=== PATIENT | female | born 1940 | race Caucasian/White ===

== ENCOUNTER 2016-11-29 12:12 | Emergency (ER) | payer MEDICARE, MEDICAID ==
--- NOTE | 2016-11-29 13:04 | EDM.PDOC ---
ED HPI GENERAL MEDICAL PROBLEM - General Chief Complaint: General Stated Complaint: MEDICAL VIA TRI Time Seen by Provider: 11/29/16 12:58 Source of Information: Reports: Patient, EMS, EMS Notes Reviewed, Family, Old Records (clinic notes reviewed from 11/24/16) - History of Present Illness INITIAL COMMENTS - FREE TEXT/NARRATIVE: Pt brought to ER via EMS. She reports going to bed last night around midnight. States that she uses a walker and misjudged the distance from her to the bed, resulting in a fall to the ground. She yelled but her family did not hear her. She lives with her son and and 3 kids. She states that she could hear the TV on very loud in the front room all night. She was able to pull the blanket off the bed and cover herself up while laying on the floor. Does not feel that she hurt anything but was unable to get up off the floor. She notes that her son saw her through the window when leaving the house this morning. They called the ambulance at that time. She currently denies pain. Is being treated for UTI since last week. States that she moved here from [place] but her son and his "are not caregivers but are doing ok" since she moved in with them. She also tells the nurse that she is diabetic but has not taken meds for 2 years. Onset: Today Duration: Improving Improves with: Reports: None Worsens with: Reports: None Context: Reports: Other (fall) Associated Symptoms: Reports: No Other Symptoms Lower Back Pain Score (Numeric/FACES): 5 - Related Data Allergies Allergy/AdvReac Type Severity Reaction Status Date / Time codeine Allergy Hives Verified 11/29/16 12:43 Home Meds: Home Meds Citalopram [Celexa] 10 mg PO DAILY 11/29/16 [History] Sulfamethoxazole/Trimethoprim [Sulfamethoxazole-Tmp Ds Tablet] 1 each PO BID [History] ED ROS GENERAL - Review of Systems Review Of Systems: See Below Constitutional: Reports: No Symptoms HEENT: Reports: No Symptoms Respiratory: Reports: No Symptoms Cardiovascular: Reports: No Symptoms GI/Abdominal: Reports: No Symptoms : Reports: Frequency, Incontinence Musculoskeletal: Reports: No Symptoms Skin: Reports: No Symptoms ED EXAM, GENERAL - Physical Exam Exam: See Below Exam Limited By: No Limitations General Appearance: Alert, WD/WN, No Apparent Distress, Other (unkempt with obvious lack of bathing recently) Ears: Normal External Exam, Normal Canal, Hearing Grossly Normal, Normal TMs Nose: Normal Inspection, Normal Mucosa, No Blood Throat/Mouth: Normal Inspection, Normal Lips, Normal Teeth, Normal Gums, Normal Oropharynx, Normal Voice, No Airway Compromise Head: Atraumatic, Normocephalic Neck: Normal Inspection, Supple, Non-Tender, Full Range of Motion Respiratory/Chest: No Respiratory Distress, Lungs Clear, Normal Breath Sounds, No Accessory Muscle Use, Chest Non-Tender Cardiovascular: Normal Peripheral Pulses, Regular Rate, Rhythm, No Edema, No Gallop, No JVD, No Murmur, No Rub Extremities: Normal Inspection, Normal Range of Motion, Non-Tender, Normal Capillary Refill, No Pedal Edema Neurological: Alert, Oriented, CN II-XII Intact, Normal Cognition, Normal Gait, Normal Reflexes, No Motor/Sensory Deficits Psychiatric: Normal Affect, Normal Mood Skin Exam: Warm, Dry, Intact, Normal Color, No Rash Course - Vital Signs Last Recorded V/S: Last Vital Signs Temp 96.8 F 11/29/16 14:42 Pulse 84 11/29/16 14:42 Resp 16 11/29/16 14:42 BP 186/108 H 11/29/16 14:42 Pulse Ox 97 11/29/16 14:42 - Orders/Labs/Meds Orders: Active Orders 24 hr Category Date Time Status Consult to Home Health [CONS] Routine Cons 11/29/16 14:20 Active CULTURE URINE [RM] Stat Lab 11/29/16 14:46 Uncollected GLYCOSYLATED HEMOGLOBIN,HGBA1C [CHEM] Stat Lab 11/29/16 13:06 Ordered Sodium Chloride 0.9% [Normal Saline] 1,000 ml Med 11/29/16 14:47 Active IV .BOLUS CM Social Work Follow Up [CM] Routine Oth 11/29/16 14:20 Ordered Medication Orders Sodium Chloride (Normal Saline) 1,000 mls @ 999 mls/hr IV .BOLUS ONE Stop: 11/29/16 15:47 Last Admin: 11/29/16 15:34 Dose: 999 mls/hr Labs: Laboratory Tests 11/29/16 11/29/16 11/29/16 Range/Units 13:03 13:03 14:36 WBC 7.3 (4.5-11.0) K/uL RBC 3.65 (3.30-5.50) M/uL Hgb 10.6 L (12.0-15.0) g/dL Hct 31.2 L (36.0-48.0) % MCV 86 (80-98) fL MCH 29 (27-31) pg MCHC 34 (32-36) % Plt Count 209 (150-400) K/uL Neut % (Auto) 64 (36-66) % Lymph % (Auto) 21 L (24-44) % [place] % (Auto) 8 H (2-6) % Eos % (Auto) 7 H (2-4) % Baso % (Auto) 0 (0-1) % Sodium 137 L (140-148) mmol/L Potassium 3.9 (3.6-5.2) mmol/L Chloride 103 (100-108) mmol/L Carbon Dioxide 25 (21-32) mmol/L Anion Gap 12.9 (5.0-14.0) mmol/L BUN 21 H (7-18) mg/dL Creatinine 1.6 H (0.6-1.0) mg/dL Est Cr Clr Drug Dosing 31.26 mL/min Estimated GFR (MDRD) 31 L (>60) Glucose 326 H (74-106) mg/dL Calcium 9.0 (8.5-10.1) mg/dL Total Bilirubin 0.4 (0.2-1.0) mg/dL AST 12 L (15-37) U/L ALT 18 (12-78) U/L Alkaline Phosphatase 62 (46-116) U/L Total Protein 7.0 (6.4-8.2) g/dL Albumin 3.0 L (3.4-5.0) g/dL Globulin 4.0 H (2.3-3.5) g/dL Albumin/Globulin Ratio 0.8 L (1.2-2.2) Urine Color Yellow Urine Appearance Cloudy Urine pH 8.0 (4.5-8.0) Ur Specific [place] 1.015 (1.008-1.030) Urine Protein 100 H (NEGATIVE) mg/dL Urine Glucose (UA) 1000 H (NEGATIVE) mg/dL Urine Ketones Negative (NEGATIVE) mg/dL Urine Occult Blood Moderate (NEGATIVE) Urine Nitrite Negative (NEGATIVE) Urine Bilirubin Negative (NEGATIVE) Urine Urobilinogen Normal (NORMAL) mg/dL Ur Leukocyte Esterase Large (NEGATIVE) Urine RBC 5-10 H (0-5) Urine WBC Semi-packed H (0-5) Ur Epithelial Cells Few Amorphous Sediment Not seen Urine Bacteria Many Urine Mucus Not seen Meds: Medications Generic Name Dose Route Start Last Admin Trade Name Freq PRN Reason Stop Dose Admin Sodium Chloride 1,000 mls @ 999 mls/hr 11/29/16 14:47 11/29/16 15:34 Normal Saline IV 11/29/16 15:47 999 mls/hr .BOLUS ONE Administration Discontinued Medications Generic Name Dose Route Start Last Admin Trade Name Freq PRN Reason Stop Dose Admin Ceftriaxone Sodium 1 gm/ 50 mls @ 100 mls/hr 11/29/16 14:46 11/29/16 15:04 Sodium Chloride IV 11/29/16 15:15 100 mls/hr ONETIME ONE Administration Departure - Departure Time of Disposition: 14:14 Disposition: Home, W Home Health Agency 06 Condition: Good Clinical Impression: Type 2 diabetes mellitus, Hypertension - Discharge Information Instructions: Hypertension Referrals: Nain Edmonds MD [Primary Care Provider] - Forms: ED Department Discharge Additional Instructions: Pt needing more care at home. Reports that she has not had a bath in "a very long time". Discussed using home health services for showering. Son states that she is getting physical therapy twice a week at this time and is improving. Discussed the need to get a diabetic testing monitor and strips as pt does not have one at home. She will need to resume insulin but is unsure what she used to take. I instructed the son to call the pharmacy in [place] for a med list and dosing. He should then report it to the primary care office. Pt has had an evaluation for assisted living placement. They have not heard back from them. Son is to call tomorrow to check on the status of placement. Pt will be discharged to home with the understanding that she needs placement for better hygiene cares, medication and diabetic management. New meds Lisinopril 10mg po daily. Reviewed fall risk. Consider [facility] services to improve safety in the home. Pt to followup with primary care in 1 week. - Problem List & Annotations (1) Type 2 diabetes mellitus SNOMED Code(s): 82757290 Code(s): E11.9 - TYPE 2 DIABETES MELLITUS WITHOUT COMPLICATIONS Status: Acute Priority: Low Current Visit: Yes (2) Hypertension SNOMED Code(s): 16245094 Code(s): I10 - ESSENTIAL (PRIMARY) HYPERTENSION Status: Acute Priority: Low Current Visit: Yes - My Orders Last 24 Hours: My Active Orders 11/29/16 13:06 GLYCOSYLATED HEMOGLOBIN,HGBA1C [CHEM] Stat 11/29/16 14:20 Consult to Home Health [CONS] Routine CM Social Work Follow Up [CM] Routine 11/29/16 14:46 CULTURE URINE [RM] Stat 11/29/16 14:47 Sodium Chloride 0.9% [Normal Saline] 1,000 ml IV .BOLUS - Assessment/Plan Last 24 Hours: My Active Orders 11/29/16 13:06 GLYCOSYLATED HEMOGLOBIN,HGBA1C [CHEM] Stat 11/29/16 14:20 Consult to Home Health [CONS] Routine CM Social Work Follow Up [CM] Routine 11/29/16 14:46 CULTURE URINE [RM] Stat 11/29/16 14:47 Sodium Chloride 0.9% [Normal Saline] 1,000 ml IV .BOLUS
[2016-11-29 14:37] VITALS: BP 186/108
[2016-11-29] MEDS ORDERED: cefTRIAXone 1 GM in Sodium Chloride 0.9% 50 ML IV ONE (14:46)
[2016-11-29] MEDS ORDERED: Sodium Chloride 0.9% 1,000 ML IV ONE (14:47)
== END 2016-11-29 16:10 | disposition home health service (06) ==
LOC: JP.ED 12:12
DX: E11.9 Type 2 diabetes mellitus without complications (principal); I10 Essential (primary) hypertension; Z88.5 Allergy status to narcotic agent; Z79.899 Other long term (current) drug therapy
CPT/HCPCS: 36415; 80053; 81001; 83036; 85025; 96361; 96365; 99284; J0696; J7040; J7050

== ENCOUNTER 2017-07-16 12:10 | Emergency (ER) | payer MEDICARE, MEDICAID ==
--- NOTE | 2017-07-16 13:36 | EDM.PDOC ---
ED HPI GENERAL MEDICAL PROBLEM - General Chief Complaint: Head Injury Stated Complaint: FALL, HIT HEAD Time Seen by Provider: 07/16/17 13:27 Source of Information: Reports: Patient, Family, RN Notes Reviewed History Limitations: Reports: No Limitations - History of Present Illness INITIAL COMMENTS - FREE TEXT/NARRATIVE: 77-year-old female presents to the emergency department today following a fall at the assisted living center. She had fallen out of her wheelchair head injury to the back of her head left side patient does not recall any of this event she had a large amount emesis following the event. At this time she has no complaints except pain at the site of injury. Left Head Pain Score (Numeric/FACES): 2 - Related Data Allergies Allergy/AdvReac Type Severity Reaction Status Date / Time codeine Allergy Hives Verified 07/16/17 13:02 Home Meds: Home Meds Sulfamethoxazole/Trimethoprim [Sulfamethoxazole-Tmp Ds Tablet] 1 each PO BID [History] Calcium Polycarbophil [Fibercon] 1 tab PO DAILY 07/16/17 [History] Escitalopram [Lexapro] 1 tab PO DAILY 07/16/17 [History] Gabapentin [Neurontin] 1 tab PO BID 07/16/17 [History] Insulin Glarg,Human.Rec.Analog [Lantus Solostar] 15 units SUBCUT BEDTIME [History] Lisinopril 1 tab PO DAILY 07/16/17 [History] Oxybutynin [Oxybutynin ER] 1 tab PO BEDTIME 07/16/17 [History] atorvaSTATin [Lipitor] 1 tab PO BEDTIME 07/16/17 [History] Past Medical History HEENT History: Reports: Impaired Vision Genitourinary History: Reports: UTI, Recurrent 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: , 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 Musculoskeletal History: Reports: Fracture Other Musculoskeletal History: l ankle Psychiatric History: Reports: Anxiety, Depression, Panic Attack Endocrine/Metabolic History: Reports: Diabetes, Type II Oncologic (Cancer) History: Reports: Other (See Below) Other Oncologic History: skin CA r arm - Infectious Disease History Infectious Disease History: Reports: Chicken Pox, Measles, Mumps - Past Surgical History HEENT Surgical History: Reports: Cataract Surgery GI Surgical History: Reports: Appendectomy, Cholecystectomy Female Surgical History: Reports: Hysterectomy Dermatological Surgical History: Reports: Skin Biopsy, Other (See Below) Social & Family History - Tobacco Use Smoking Status *Q: Never Smoker Second Hand Smoke Exposure: No - Caffeine Use Caffeine Use: Reports: Soda, Tea - Recreational Drug Use Recreational Drug Use: No ED ROS GENERAL - Review of Systems Review Of Systems: See Below Constitutional: Reports: No Symptoms HEENT: Reports: No Symptoms Respiratory: Reports: No Symptoms Cardiovascular: Reports: No Symptoms GI/Abdominal: Reports: No Symptoms : Reports: No Symptoms Musculoskeletal: Reports: No Symptoms Skin: Reports: Other Neurological: Reports: Headache ED EXAM, HEAD INJURY - Physical Exam Exam: See Below Exam Limited By: No Limitations General Appearance: Alert, No Apparent Distress Head: Normocephalic, Scalp Hematoma, Scalp Tenderness Nexus Criteria: No: Posterior, Midline Cervical Tenderness, Evidence of Intoxication, Altered Level of Consciousness, Focal Neurological Deficit, Painful Distraction Injuries Eyes: Bilateral Eye: EOMI, Normal Inspection, PERRL Ears: Normal External Exam, Normal Canal, Hearing Grossly Normal, Normal TMs Nose: Normal Inspection, Normal Mucousa, No Blood Throat/Mouth: Normal Inspection, Normal Lips, Normal Teeth, Normal Gums, Normal Oropharynx, Normal Voice, No Airway Compromise Neck: Non-Tender, Full Range of Motion, Normal Alignment, Normal Inspection Respiratory: No Respiratory Distress, Lungs Clear, Normal Breath Sounds, No Accessory Muscle Use, Chest Non-Tender Cardiovascular: Regular Rate, Rhythm, No Murmur GI/Abdominal Exam: Soft, Non-Tender Extremities: Normal Inspection, Normal Range of Motion, Non-Tender, No Pedal Edema, Normal Capillary Refill Neurologic: No Motor/Sensory Deficits, Alert, Normal Mood/Affect Course - Vital Signs Last Recorded V/S: Last Vital Signs Temp 98.1 F 07/16/17 12:57 Pulse 63 07/16/17 14:36 Resp 14 07/16/17 14:36 BP 168/78 H 07/16/17 14:36 Pulse Ox 94 L 07/16/17 14:36 - Orders/Labs/Meds Meds: Medications Discontinued Medications Generic Name Dose Route Start Last Admin Trade Name Freq PRN Reason Stop Dose Admin Nitroglycerin 0.4 mg 07/16/17 14:08 07/16/17 14:20 Nitrostat SL 07/16/17 14:09 0.4 mg ONETIME ONE Administration Departure - Departure Time of Disposition: 14:51 Disposition: Home, Self-Care 01 Condition: Good Clinical Impression: Head injury Qualifiers: Encounter type: initial encounter Qualified Code(s): S09.90XA - Unspecified injury of head, initial encounter Hypertension Qualifiers: Hypertension type: unspecified Qualified Code(s): I10 - Essential (primary) hypertension - Discharge Information Referrals: Nain Edmonds MD [Primary Care Provider] - Forms: ED Department Discharge Additional Instructions: Increase the lisinopril from 10 mg once a day to 20 mg once a day, please follow -up with your primary care for reevaluation in 3-5 days, call or return to the emergency department with worsening of symptoms - Assessment/Plan Plan: Assessment Acuity = acute Site and laterality = head injury with hypertensive urgency Etiology = secondary to fall on the head injury unclear etiology for blood pressure Manifestations = none Location of injury = Home Lab values = CT scan of the head shows no bleed or fracture scalp hematoma present Plan She had some improvement with nitroglycerin 1 provided 0.2 mg plan is to increase her lisinopril from 10 mg once a day to 20 mg once a day follow-up with primary care in 3-5 days for reevaluation This note was dictated using [email or web address] voice recognition software please call with any questions on syntax or foreign.
--- NOTE | 2017-07-16 14:03 | CT ---
Head wo Cont HISTORY: head injury with emesis TECHNIQUE: Spiral noncontrast CT scan of the brain was obtained along with high-resolution bone windo w reconstructions. Auto dosage and iterative reconstruction techniques were employed. FINDINGS: No acute intracranial hemorrhage or infarct is identified. There is no mass lesion, mass effect, midl ine shift, or ventricular abnormality. No abnormal extra-axial fluid collections are seen. Visualized paranasal sinuses and mastoid air cells are clear. Bone windows show no evidence for skull fracture. Left parietal scalp hematoma is noted. IMPRESSION: Left parietal scalp hematoma. No hemorrhage, infarct, or other acute intracranial abnormality is iden tified. Negative for skull fracture. Report was called to Officer in the Emergency Department at 1358 hours.
[2017-07-16] MEDS ORDERED: Nitroglycerin 0.4 MG Tab.SL SL ONE (14:08)
[2017-07-16 14:37] VITALS: BP 168/78
== END 2017-07-16 15:02 | disposition home or self-care (01) ==
LOC: JP.ED 12:10
DX: S00.03XA Contusion of scalp, initial encounter (principal); S09.90XA Unspecified injury of head, initial encounter; E11.9 Type 2 diabetes mellitus without complications; I10 Essential (primary) hypertension; Z88.5 Allergy status to narcotic agent; Z79.899 Other long term (current) drug therapy; W19.XXXA Unspecified fall, initial encounter
CPT/HCPCS: 70450; 99284; A9270

== ENCOUNTER 2017-09-27 00:44 | Emergency (ER) | payer MEDICARE, MEDICAID ==
--- NOTE | 2017-09-27 00:56 | EDM.PDOCBH ---
<Jose Hassan - Last Filed: 09/28/17 14:36> ED HPI GENERAL MEDICAL PROBLEM - General Chief Complaint: Behavioral/Psych Stated Complaint: MEDICAL VIA TRI Time Seen by Provider: 09/27/17 00:52 - Related Data Allergies Allergy/AdvReac Type Severity Reaction Status Date / Time codeine Allergy Hives Verified 07/16/17 13:02 Home Meds: Home Meds Insulin Glarg,Human.Rec.Analog [Lantus Solostar] 15 units SUBCUT BEDTIME [History] Hydrochlorothiazide 25 mg PO DAILY 09/27/17 [History] Lisinopril 20 mg PO DAILY 09/27/17 [History] Mirtazapine [Remeron] 15 mg PO BEDTIME 09/27/17 [History] atorvaSTATin Calcium [Atorvastatin Calcium] 20 mg PO DAILY 09/27/17 [History] COURSE, BEHAVIORAL HEALTH COMP - Course Vital Signs: Last Vital Signs Temp 37.3 C 09/27/17 20:19 Pulse 62 09/28/17 14:18 Resp 16 09/28/17 14:18 BP 181/79 H 09/28/17 14:18 Pulse Ox 100 09/28/17 14:18 Orders, Labs, Meds: Laboratory Tests 09/27/17 09/27/17 09/27/17 Range/Units 01:00 01:00 16:36 WBC 8.3 (4.5-11.0) K/uL RBC 3.44 (3.30-5.50) M/uL Hgb 10.1 L (12.0-15.0) g/dL Hct 30.5 L (36.0-48.0) % MCV 89 (80-98) fL MCH 29 (27-31) pg MCHC 33 (32-36) % Plt Count 186 (150-400) K/uL Sodium 137 L (140-148) mmol/L Potassium 3.8 (3.6-5.2) mmol/L Chloride 102 (100-108) mmol/L Carbon Dioxide 23 (21-32) mmol/L Anion Gap 15.8 H (5.0-14.0) mmol/L BUN 36 H D (7-18) mg/dL Creatinine 1.8 H (0.6-1.0) mg/dL Est Cr Clr Drug Dosing 26.40 mL/min Estimated GFR (MDRD) 27 L (>60) Glucose 245 H (74-106) mg/dL Calcium 8.7 (8.5-10.1) mg/dL TSH, Ultra Sensitive 4.214 H (0.358-3.740) uIU/mL Urine Color Yellow Urine Appearance Slightly cloudy Urine pH 6.0 (4.5-8.0) Ur Specific Berry 1.010 (1.008-1.030) Urine Protein 100 H (NEGATIVE) mg/dL Urine Glucose (UA) Normal (NEGATIVE) mg/dL Urine Ketones Negative (NEGATIVE) mg/dL Urine Occult Blood Moderate (NEGATIVE) Urine Nitrite Negative (NEGATIVE) Urine Bilirubin Negative (NEGATIVE) Urine Urobilinogen Normal (NORMAL) mg/dL Ur Leukocyte Esterase Negative (NEGATIVE) Urine RBC 0-5 (0-5) Urine WBC 0-5 (0-5) Ur Epithelial Cells Rare Amorphous Sediment Not seen Urine Bacteria Many Urine Mucus Not seen Urine Opiates Screen (NEGATIVE) Ur Oxycodone Screen (NEGATIVE) Urine Methadone Screen (NEGATIVE) Ur Propoxyphene Screen (NEGATIVE) Ur Barbiturates Screen (NEGATIVE) Ur Tricyclics Screen (NEGATIVE) Ur Phencyclidine Scrn (NEGATIVE) Ur Amphetamine Screen (NEGATIVE) U Methamphetamines Scrn (NEGATIVE) Urine MDMA Screen (NEGATIVE) U Benzodiazepines Scrn (NEGATIVE) U Cocaine Metab Screen (NEGATIVE) U Marijuana (THC) Screen (NEGATIVE) 09/27/17 Range/Units 16:38 WBC (4.5-11.0) K/uL RBC (3.30-5.50) M/uL Hgb (12.0-15.0) g/dL Hct (36.0-48.0) % MCV (80-98) fL MCH (27-31) pg MCHC (32-36) % Plt Count (150-400) K/uL Sodium (140-148) mmol/L Potassium (3.6-5.2) mmol/L Chloride (100-108) mmol/L Carbon Dioxide (21-32) mmol/L Anion Gap (5.0-14.0) mmol/L BUN (7-18) mg/dL Creatinine (0.6-1.0) mg/dL Est Cr Clr Drug Dosing mL/min Estimated GFR (MDRD) (>60) Glucose (74-106) mg/dL Calcium (8.5-10.1) mg/dL TSH, Ultra Sensitive (0.358-3.740) uIU/mL Urine Color Urine Appearance Urine pH (4.5-8.0) Ur Specific Berry (1.008-1.030) Urine Protein (NEGATIVE) mg/dL Urine Glucose (UA) (NEGATIVE) mg/dL Urine Ketones (NEGATIVE) mg/dL Urine Occult Blood (NEGATIVE) Urine Nitrite (NEGATIVE) Urine Bilirubin (NEGATIVE) Urine Urobilinogen (NORMAL) mg/dL Ur Leukocyte Esterase (NEGATIVE) Urine RBC (0-5) Urine WBC (0-5) Ur Epithelial Cells Amorphous Sediment Urine Bacteria Urine Mucus Urine Opiates Screen Negative (NEGATIVE) Ur Oxycodone Screen Negative (NEGATIVE) Urine Methadone Screen Negative (NEGATIVE) Ur Propoxyphene Screen Negative (NEGATIVE) Ur Barbiturates Screen Negative (NEGATIVE) Ur Tricyclics Screen Negative (NEGATIVE) Ur Phencyclidine Scrn Negative (NEGATIVE) Ur Amphetamine Screen Negative (NEGATIVE) U Methamphetamines Scrn Negative (NEGATIVE) Urine MDMA Screen Negative (NEGATIVE) U Benzodiazepines Scrn Negative (NEGATIVE) U Cocaine Metab Screen Negative (NEGATIVE) U Marijuana (THC) Screen Negative (NEGATIVE) Medications Discontinued Medications Generic Name Dose Route Start Last Admin Trade Name Freq PRN Reason Stop Dose Admin Hydrochlorothiazide 25 mg 09/27/17 14:10 09/27/17 14:33 Hydrochlorothiazide PO 09/27/17 14:11 25 mg ONETIME ONE Administration Hydrochlorothiazide 25 mg 09/28/17 12:22 09/28/17 12:30 Hydrochlorothiazide PO 09/28/17 12:23 25 mg ONETIME ONE Administration Lisinopril 20 mg 09/28/17 14:13 09/27/17 14:34 Prinivil PO 09/28/17 14:14 20 mg ONETIME ONE Administration Lisinopril 20 mg 09/28/17 12:22 09/28/17 12:30 Prinivil PO 09/28/17 12:23 20 mg ONETIME ONE Administration Lisinopril Confirm 09/28/17 12:32 Prinivil Administered 09/28/17 12:33 Dose 10 mg .ROUTE .STK-MED ONE Metformin HCl 500 mg 09/27/17 01:49 09/27/17 02:12 Glucophage PO 09/27/17 01:50 Not Given ONETIME ONE Metoprolol Succinate 50 mg 09/27/17 17:42 09/27/17 18:24 Toprol Xl PO 09/27/17 17:43 50 mg ONETIME ONE Administration Re-Assessment/Re-Exam: Patient accepted from Dr. Prieto awaiting placement for suicidal ideation. At this time the patient continues to be quiet, resting, but not compliant or communicating with nurses. She is showing no outward aggressive or suicidal behavior acutely, does not need to be on suicide precautions or watch but still needs placement. After an extensive evaluation by crisis intervention, and a group meeting with the care staff from her assisted living, it was felt that she needed inpatient treatment for her psychiatric symptoms and was not stable enough to be sent back to assisted living. She remained hypertensive even after getting her normal antihypertensive medication so it an additional 50 mg of oral metoprolol was given. 09/28/17 12:24 Patient's mental status continues to improve, she is now communicating, eating, and is willing to cooperate. I teleconference evaluation from Dr. Michael was set up. She continued to be moderately hypertensive and was given her lisinopril and hydrochlorothiazide. If medication adjustments can be made by Dr. Michael, patient is willing to go back to assisted living. After thorough consultation by Dr. Michael, the patient will be discharged back to her assisted living. Remeron will be discontinued, and she will be started on 25 mg of Topamax twice a day with 6.25 mg of Seroquel in the evening. 10 days supply of prescriptions were given to the patient and she is to follow up with primary care or outpatient psychology /psychiatry within the next 10 days. Departure - Departure Disposition: Home, Self-Care 01 Clinical Impression: Elevated blood sugar, Mild dehydration, Suicidal ideation Depression Qualifiers: Depression Type: unspecified Qualified Code(s): F32.9 - Major depressive disorder, single episode, unspecified - Discharge Information Instructions: Persistent Depressive Disorder, Adult, [id number], Dehydration , Adult, [id number], Hyperglycemia, [id number] Referrals: PCP,None [Primary Care Provider] - Forms: ED Department Discharge Care Plan Goals: D/C Remeron and start Topamax and Seroquel as prescribed. Recheck with primary care or outpatient psychology/psychiatry within the next 10 days before medications run out. Return sooner if worsening despite change in treatment. 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 Will not reveal her plan. Does not have access to any meds in her apartment. No hx of suicidal attempts. Has not been compliant with her meds. Is not here willingly, had called and reported her thoughts of not wanting to live with a caregiver/friend and she had her on speaker phone with one of [facility]. Mellisa not knowing that there were others listening on the conversation said she would deny everything if anyone confronted her about this. Onset: Gradual Duration: Chronic, Getting Worse Location: Reports: Generalized Quality: Reports: Other (no pain) Severity: Moderate Improves with: Reports: None Worsens with: Reports: Other (time) Context: Reports: Other (has chronic depression. 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 (see below) (antidepressants tried, not taking consistently.) Past Medical History HEENT History: Reports: Impaired Vision Genitourinary History: Reports: UTI, Recurrent USED [employer] History: Reports: , Spontaneous Musculoskeletal History: Reports: Fracture Other Musculoskeletal History: l ankle Psychiatric History: Reports: Anxiety, Depression, Panic Attack Endocrine/Metabolic History: Reports: Diabetes, Type II Oncologic (Cancer) History: Reports: Other (See Below) Other Oncologic History: skin CA r arm - Infectious Disease History Infectious Disease History: Reports: Chicken Pox, Measles, Mumps - Past Surgical History HEENT Surgical History: Reports: Cataract Surgery GI Surgical History: Reports: Appendectomy, Cholecystectomy Female Surgical History: Reports: Hysterectomy Dermatological Surgical History: Reports: Skin Biopsy, Other (See Below) Social & Family History - Caffeine Use Caffeine Use: Reports: Soda, Tea ED ROS GENERAL - Review of Systems Review Of Systems: See Below Constitutional: Reports: No Symptoms HEENT: Reports: No Symptoms Respiratory: Reports: No Symptoms Cardiovascular: Reports: No Symptoms Endocrine: Reports: No Symptoms GI/Abdominal: Reports: No Symptoms : Reports: No Symptoms Musculoskeletal: Reports: No Symptoms Skin: Reports: No Symptoms Neurological: Reports: Other (insomnia) Psychiatric: Reports: Depression, Suicidal Ideation ED EXAM, BEHAVIORAL HEALTH - Physical Exam Exam: See Below Exam Limited By: No Limitations General Appearance: Alert, WD/WN, No Apparent Distress Eye Exam: Bilateral Eye: Normal Inspection Ears: Normal External Exam, Normal Canal, Hearing Grossly Normal Nose: Normal Inspection, Normal Mucosa, No Blood Throat/Mouth: Normal Inspection, Normal Lips, Normal Oropharynx, Normal Voice, No Airway Compromise, Other (edentulous) Head: Atraumatic, Normocephalic Neck: Normal Inspection Respiratory/Chest: No Respiratory Distress, Lungs Clear, Normal Breath Sounds, No Accessory Muscle Use Cardiovascular: Regular Rate, Rhythm, No Edema GI/Abdominal: Normal Bowel Sounds, Soft, Non-Tender, No Distention Back Exam: Normal Inspection. No: CVA Tenderness (R), CVA Tenderness (L) Extremities: Normal Inspection, Normal Range of Motion, Non-Tender, No Pedal Edema Neurological: Alert, CN II-XII Intact, Normal Cognition, Normal Reflexes, No Motor/Sensory Deficits, Oriented x 3 Psychiatric: Alert, Normal Cognition, Oriented, Flat Affect, Withdrawn Skin Exam: Warm, Dry, Intact, Normal color, No rash COURSE, BEHAVIORAL HEALTH COMP - Course Vital Signs: Last Vital Signs Temp 37.3 C 09/27/17 20:19 Pulse 62 09/28/17 14:18 Resp 16 09/28/17 14:18 BP 181/79 H 09/28/17 14:18 Pulse Ox 100 09/28/17 14:18 Orders, Labs, Meds: Laboratory Tests 09/27/17 09/27/17 09/27/17 Range/Units 01:00 01:00 16:36 WBC 8.3 (4.5-11.0) K/uL RBC 3.44 (3.30-5.50) M/uL Hgb 10.1 L (12.0-15.0) g/dL Hct 30.5 L (36.0-48.0) % MCV 89 (80-98) fL MCH 29 (27-31) pg MCHC 33 (32-36) % Plt Count 186 (150-400) K/uL Sodium 137 L (140-148) mmol/L Potassium 3.8 (3.6-5.2) mmol/L Chloride 102 (100-108) mmol/L Carbon Dioxide 23 (21-32) mmol/L Anion Gap 15.8 H (5.0-14.0) mmol/L BUN 36 H D (7-18) mg/dL Creatinine 1.8 H (0.6-1.0) mg/dL Est Cr Clr Drug Dosing 26.40 mL/min Estimated GFR (MDRD) 27 L (>60) Glucose 245 H (74-106) mg/dL Calcium 8.7 (8.5-10.1) mg/dL TSH, Ultra Sensitive 4.214 H (0.358-3.740) uIU/mL Urine Color Yellow Urine Appearance Slightly cloudy Urine pH 6.0 (4.5-8.0) Ur Specific Berry 1.010 (1.008-1.030) Urine Protein 100 H (NEGATIVE) mg/dL Urine Glucose (UA) Normal (NEGATIVE) mg/dL Urine Ketones Negative (NEGATIVE) mg/dL Urine Occult Blood Moderate (NEGATIVE) Urine Nitrite Negative (NEGATIVE) Urine Bilirubin Negative (NEGATIVE) Urine Urobilinogen Normal (NORMAL) mg/dL Ur Leukocyte Esterase Negative (NEGATIVE) Urine RBC 0-5 (0-5) Urine WBC 0-5 (0-5) Ur Epithelial Cells Rare Amorphous Sediment Not seen Urine Bacteria Many Urine Mucus Not seen Urine Opiates Screen (NEGATIVE) Ur Oxycodone Screen (NEGATIVE) Urine Methadone Screen (NEGATIVE) Ur Propoxyphene Screen (NEGATIVE) Ur Barbiturates Screen (NEGATIVE) Ur Tricyclics Screen (NEGATIVE) Ur Phencyclidine Scrn (NEGATIVE) Ur Amphetamine Screen (NEGATIVE) U Methamphetamines Scrn (NEGATIVE) Urine MDMA Screen (NEGATIVE) U Benzodiazepines Scrn (NEGATIVE) U Cocaine Metab Screen (NEGATIVE) U Marijuana (THC) Screen (NEGATIVE) 09/27/17 Range/Units 16:38 WBC (4.5-11.0) K/uL RBC (3.30-5.50) M/uL Hgb (12.0-15.0) g/dL Hct (36.0-48.0) % MCV (80-98) fL MCH (27-31) pg MCHC (32-36) % Plt Count (150-400) K/uL Sodium (140-148) mmol/L Potassium (3.6-5.2) mmol/L Chloride (100-108) mmol/L Carbon Dioxide (21-32) mmol/L Anion Gap (5.0-14.0) mmol/L BUN (7-18) mg/dL Creatinine (0.6-1.0) mg/dL Est Cr Clr Drug Dosing mL/min Estimated GFR (MDRD) (>60) Glucose (74-106) mg/dL Calcium (8.5-10.1) mg/dL TSH, Ultra Sensitive (0.358-3.740) uIU/mL Urine Color Urine Appearance Urine pH (4.5-8.0) Ur Specific Berry (1.008-1.030) Urine Protein (NEGATIVE) mg/dL Urine Glucose (UA) (NEGATIVE) mg/dL Urine Ketones (NEGATIVE) mg/dL Urine Occult Blood (NEGATIVE) Urine Nitrite (NEGATIVE) Urine Bilirubin (NEGATIVE) Urine Urobilinogen (NORMAL) mg/dL Ur Leukocyte Esterase (NEGATIVE) Urine RBC (0-5) Urine WBC (0-5) Ur Epithelial Cells Amorphous Sediment Urine Bacteria Urine Mucus Urine Opiates Screen Negative (NEGATIVE) Ur Oxycodone Screen Negative (NEGATIVE) Urine Methadone Screen Negative (NEGATIVE) Ur Propoxyphene Screen Negative (NEGATIVE) Ur Barbiturates Screen Negative (NEGATIVE) Ur Tricyclics Screen Negative (NEGATIVE) Ur Phencyclidine Scrn Negative (NEGATIVE) Ur Amphetamine Screen Negative (NEGATIVE) U Methamphetamines Scrn Negative (NEGATIVE) Urine MDMA Screen Negative (NEGATIVE) U Benzodiazepines Scrn Negative (NEGATIVE) U Cocaine Metab Screen Negative (NEGATIVE) U Marijuana (THC) Screen Negative (NEGATIVE) Medications Discontinued Medications Generic Name Dose Route Start Last Admin Trade Name Freq PRN Reason Stop Dose Admin Hydrochlorothiazide 25 mg 09/27/17 14:10 09/27/17 14:33 Hydrochlorothiazide PO 09/27/17 14:11 25 mg ONETIME ONE Administration Hydrochlorothiazide 25 mg 09/28/17 12:22 09/28/17 12:30 Hydrochlorothiazide PO 09/28/17 12:23 25 mg ONETIME ONE Administration Lisinopril 20 mg 09/28/17 14:13 09/27/17 14:34 Prinivil PO 09/28/17 14:14 20 mg ONETIME ONE Administration Lisinopril 20 mg 09/28/17 12:22 09/28/17 12:30 Prinivil PO 09/28/17 12:23 20 mg ONETIME ONE Administration Lisinopril Confirm 09/28/17 12:32 Prinivil Administered 09/28/17 12:33 Dose 10 mg .ROUTE .STK-MED ONE Metformin HCl 500 mg 09/27/17 01:49 09/27/17 02:12 Glucophage PO 09/27/17 01:50 Not Given ONETIME ONE Metoprolol Succinate 50 mg 09/27/17 17:42 09/27/17 18:24 Toprol Xl PO 09/27/17 17:43 50 mg ONETIME ONE Administration Departure - Departure Time of Disposition: 15:00 Condition: Good
[2017-09-27] MEDS ORDERED: metFORMIN 500 MG Tab PO ONE (01:49)
[2017-09-27] MEDS ORDERED: Hydrochlorothiazide 25 MG Tab PO ONE (14:10)
[2017-09-27] MEDS ORDERED: Lisinopril 10 MG Tab PO ONE (14:10)
[2017-09-27] MEDS ORDERED: Metoprolol Succinate 50 MG Tab.ER PO ONE (17:42)
[2017-09-28] MEDS ORDERED: Lisinopril 10 MG Tab PO ONE (12:22)
[2017-09-28] MEDS ORDERED: Hydrochlorothiazide 25 MG Tab PO ONE (12:22)
[2017-09-28] MEDS ORDERED: Lisinopril 10 MG Tab ONE (12:32)
[2017-09-28] MEDS ORDERED: Lisinopril 20 MG Tab PO ONE (14:13)
[2017-09-28 14:18] VITALS: BP 181/79
--- NOTE | 2017-09-29 13:57 | CONS ---
DATE OF SERVICE: 09/28/2017 REFERRING PHYSICIAN: CONSULTING PHYSICIAN: Graham Michael MD IDENTIFICATION: The patient is a 77-year-old female who presents to the [facility] Emergency Room in [place], [place]. She is seen for psychiatric consultation as part of this clinical event. CHIEF COMPLAINT: "I made a statement to one of the workers at [facility]. She took it for suicide and I didn't mean it that way." HISTORY OF PRESENT ILLNESS: The patient is a 77-year-old female who reports that she had been struggling with increased depression and frustration over a number of moves over the past year. The patient states also she has been having significant mood swings. She feels hopeless. She has situational anxiety and she states that for a while now, she has just been much more irritable overall. She endorses racing thoughts and ruminations often to a point of distraction. In addition to the "quite a few down feelings" that the patient is experiencing, she is struggling with mood swings and she has come to a point now where she is fearful that the [facility] staff "is trying to change my mood and my thoughts" in a negative way with medication management they have been providing for the patient. The patient has situational anxiety over her assisted living situation. She has been on Remeron and then prescribed this for the past year, but she has been refusing it lately and she states that when she takes the Remeron, actually it makes her situation worse. She states that she takes the Remeron and then she feels much more angry and irritable and she is also more prone to frequent crying episodes when she is on this medication. She states what she would like to do is get something to help even out her mood and states, "my depression is not that bad. When I really think about it, it is more negating, irritable, and angry, but I get depressed because nothing is being done." She denies that she is suicidal, she denies that she is homicidal, she denies any psychotic, delusional, or paranoid symptoms. She denies any illicit substance use or excessive alcohol use complicating her clinical picture. MEDICATIONS: At the time of presentation, Remeron 15 mg q.h.s., but the patient states she has been refusing this medication lately. ALLERGIES: THE PATIENT IS ALLERGIC TO CODEINE. PAST MEDICAL HISTORY: 1. Type 1 diabetes. 2. Hypertension. REVIEW OF SYSTEMS: Aside from endocrine and cardiovascular, all other major organ systems are negative at this point in time for acute difficulties or complications. FAMILY, PSYCHIATRIC, AND CD HISTORY: None known. PAST PSYCHIATRIC AND CD HISTORY: Essentially negative. The patient is denying any previous psychiatric hospitalizations or chemical dependency treatments. She denies any previous suicide attempts or self-injurious behaviors, and denies any previous psychiatric medication history. Her outpatient care provider is Dr. York. SOCIAL HISTORY: The patient is born and raised in [place]. Her highest level of education is college. 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 She has been x1, but her back in 1972. The patient has been living at [facility] for the past year. MENTAL STATUS EXAMINATION: The patient is 77-year-old white female in no apparent distress. Speech is of regular rate and rhythm. The patient is cognitively oriented. Psychomotor activity is within normal limits. There are no abnormal motor movements or tics observed. Gait and station are not observed as the patient is seated on a gurney in the emergency room for the purposes of the psychiatric consult. Mood is depressed and irritable. Affect is cooperative overall for the purposes of the emergency room consult. There is no behavioral or stated evidence of acute suicidal or homicidal ideation or acute psychiatric delusion or paranoid symptoms. Thought processes are significant for racing thoughts and ruminations. There are no acute manic symptoms or loose associations evident. Judgement and insight appear unimpaired at this point in time. Motivation for help is good. PHYSICAL EXAMINATION: VITAL SIGNS: 93/84, 63, 16, 98.6 degrees. IMPRESSION: Bend I: 1. Bipolar affective disease, F31.60. 2. Anxiety disorder, not otherwise specified, F41.9. Bend II: None. Bend III: 1. Hypertension. 2. Type 1 diabetes. Bend IV: Severe. Bend V: 60. PLAN: 1. Discontinue Remeron. 2. Begin Topamax 25 mg b.i.d. for mood stability and anxiety reduction. 3. Begin Seroquel 6.25 mg q.h.s. to help reduce racing thoughts, ruminations, as well as to assist with sleep initiation and maintenance, anxiety reduction, clarity of thoughts, and any symptoms of depression the patient may be experiencing. 4. Other medications as dosed and prescribed by the patient's primary outpatient medical treatment team. 5. Recommend treatment team and emergency room address the patient's hypertension as revealed by vitals. 6. The patient does not appear to be a danger to herself or others at this point in time and recommend that when the patient's blood pressure is addressed if she is medically stable, she can be discharged back to her [facility]. 7. Recommend the patient follow up with outpatient psychiatry to assess the overall functional efficacy of her newly initiated psychiatric medication regimen. 8. We will continue to follow up with the patient on an as-needed basis while she remains in the emergency room department. 9. We will follow up with the patient sooner if any complications in the interim. 10.Crisis plan is in place. Graham Michael MD /[id number]
== END 2017-09-28 15:53 | disposition home or self-care (01) ==
LOC: JP.ED 00:44
DX: F32.9 Major depressive disorder, single episode, unspecified (principal); R45.851 Suicidal ideations; E86.0 Dehydration; F41.9 Anxiety disorder, unspecified; E11.9 Type 2 diabetes mellitus without complications; Z88.5 Allergy status to narcotic agent; Z79.899 Other long term (current) drug therapy
CPT/HCPCS: 36415; 80048; 80305; 81001; 82962; 84443; 85027; 99284; A9270; Q3014-GT

== ENCOUNTER 2019-06-03 13:15 | Emergency (ER) | payer MEDICAID, MEDICARE ==
[2019-06-03] MEDS ORDERED: Sodium Chloride 0.9% 1,000 ML IV SCH (14:15)
--- NOTE | 2019-06-03 15:15 | CRLCR ---
Indication: Choked on hot duct. Technique: AP portable view of the chest. Comparison: None Findings: The heart is borderline in size. The lungs are clear. The right hemidiaphragm is mildly elevated. No infiltrate, pleural effusion, pneumothorax is identified. Impression: No acute cardiopulmonary process Dictated by Thelma Quinteros MD @ Jun 03 2019 3:13PM Signed by Dr. Thelma Quinteros @ Jun 03 2019 3:14PM
--- NOTE | 2019-06-03 15:41 | EDM.PDOC ---
ED HPI GENERAL MEDICAL PROBLEM - General Chief Complaint: General Stated Complaint: EATING LUNCH Time Seen by Provider: 06/03/19 13:30 Source of Information: Reports: Patient History Limitations: Reports: No Limitations - History of Present Illness INITIAL COMMENTS - FREE TEXT/NARRATIVE: pt was eating lunch and she choked on a hot dog and bun. The heimlech was done and the hot dog came out but the bun was more difficult. She appeared to be breathing ok after that. She has been more lethargic today than usual. Onset: Today, Sudden Duration: Hour(s): Location: Reports: Chest Associated Symptoms: Reports: Other (pt is not having symptoms at this time. ) - Related Data Allergies Allergy/AdvReac Type Severity Reaction Status Date / Time codeine Allergy Hives Verified 07/16/17 13:02 Home Meds: Home Meds Mirtazapine [Remeron] 15 mg PO BEDTIME 09/27/17 [History] atorvaSTATin Calcium [Atorvastatin Calcium] 20 mg PO BEDTIME 09/27/17 [History] ARIPiprazole [Aripiprazole] 2 mg PO DAILY 06/03/19 [History] Citalopram [Citalopram HBr] 20 mg PO DAILY 06/03/19 [History] Folic Acid 1 mg PO DAILY 06/03/19 [History] Insulin Glargine,Hum.Rec.Anlog [Basaglar Kwikpen U-100] 16 unit SUBCUT BEDTIME 06/03/19 [History] LORazepam [Ativan] 0.5 mg PO BID 06/03/19 [History] Memantine HCl [Namenda] 10 mg PO BID 06/03/19 [History] Montelukast [Singulair] 10 mg PO DAILY 06/03/19 [History] Omeprazole 40 mg PO DAILY 06/03/19 [History] Oxybutynin 5 mg PO BEDTIME 06/03/19 [History] Psyllium Husk [Konsyl] 1 tsp PO DAILY 06/03/19 [History] QUEtiapine [SEROquel] 12.5 mg PO BID 06/03/19 [History] Saccharomyces Boulardii [Florastor] 500 mg PO BID 06/03/19 [History] Topiramate 25 mg PO BID 06/03/19 [History] amLODIPine Besylate [Amlodipine Besylate] 10 mg PO DAILY 06/03/19 [History] polyethylene glycoL 3350 [Polyethylene Glycol 3350] 17 g PO DAILY 06/03/19 [ History] Past Medical History HEENT History: Reports: Impaired Vision Cardiovascular History: Reports: Hypertension Genitourinary History: Reports: UTI, Recurrent DISABILITY MANAGER History: Reports: , Spontaneous Musculoskeletal History: Reports: Fracture Other Musculoskeletal History: l ankle Neurological History: Reports: Concussion Psychiatric History: Reports: Anxiety, Depression, Panic Attack Endocrine/Metabolic History: Reports: Diabetes, Type II Oncologic (Cancer) History: Reports: Other (See Below) Other Oncologic History: skin CA r arm - Infectious Disease History Infectious Disease History: Reports: Chicken Pox, Measles, Mumps - Past Surgical History HEENT Surgical History: Reports: Cataract Surgery GI Surgical History: Reports: Appendectomy, Cholecystectomy Female Surgical History: Reports: Hysterectomy Dermatological Surgical History: Reports: Skin Biopsy, Other (See Below) Social & Family History - Tobacco Use Smoking Status *Q: Unknown Ever Smoked - Caffeine Use Caffeine Use: Reports: Soda, Tea ED ROS GENERAL - Review of Systems Review Of Systems: See Below Constitutional: Reports: Weakness, Other (pt is lethargic. ) HEENT: Reports: No Symptoms, Other (mouth is dry and she states that earluier this was the case. ) Respiratory: Reports: No Symptoms, Other ( pt choked on a hot dog and the Hemilich maunever was done on the pt. ) Cardiovascular: Reports: No Symptoms GI/Abdominal: Reports: No Symptoms : Reports: No Symptoms Musculoskeletal: Reports: No Symptoms Skin: Reports: No Symptoms ED EXAM, GENERAL - Physical Exam Exam: See Below Free Text/Narrative:: pt arrived with a history of choking on a hot dog. Shad the hemlich maunver done and the hot dog did come out. Then there was some diffculty getting the bun out. Her o2 sats returned to the mid 90s. Exam Limited By: No Limitations General Appearance: Alert, No Apparent Distress, Anxious, Other (pt is very sleepy. ) Ears: Normal TMs Nose: Normal Inspection Throat/Mouth: Normal Inspection Head: Atraumatic Neck: Normal Inspection Respiratory/Chest: No Respiratory Distress, Other (pt sounds clear and she is not coughing. ) Cardiovascular: Regular Rate, Rhythm GI/Abdominal: Soft, Non-Tender (Female) Exam: Deferred Rectal (Female) Exam: Deferred Back Exam: Normal Inspection Extremities: Normal Inspection Neurological: Alert, Oriented, Other (pt is very lethargic. ) Psychiatric: Normal Affect Course - Vital Signs Last Recorded V/S: Last Vital Signs Temp 35.9 C L 06/03/19 13:22 Pulse 68 06/03/19 17:05 Resp 16 06/03/19 13:22 BP 204/100 H 06/03/19 17:05 Pulse Ox 96 06/03/19 17:05 - Orders/Labs/Meds Orders: Active Orders 24 hr Category Date Time Status CULTURE URINE [RM] Stat Lab 06/03/19 16:31 Results Labs: Laboratory Tests 06/03/19 06/03/19 06/03/19 Range/Units 14:13 14:33 14:53 WBC 8.7 (4.5-11.0) K/uL RBC 3.13 L (3.30-5.50) M/uL Hgb 9.0 L (12.0-15.0) g/dL Hct 29.2 L (36.0-48.0) % MCV 93 (80-98) fL MCH 29 (27-31) pg MCHC 31 L (32-36) % Plt Count 178 (150-400) K/uL Neut % (Auto) 77 H (36-66) % Lymph % (Auto) 14 L (24-44) % [place] % (Auto) 5 (2-6) % Eos % (Auto) 4 (2-4) % Baso % (Auto) 0 (0-1) % Sodium 141 (140-148) mmol/L Potassium 4.5 (3.6-5.2) mmol/L Chloride 107 (100-108) mmol/L Carbon Dioxide 24 (21-32) mmol/L Anion Gap 10.1 (5.0-14.0) mmol/L BUN 43 H (7-18) mg/dL Creatinine 1.7 H (0.6-1.0) mg/dL Est Cr Clr Drug Dosing 27.07 mL/min Estimated GFR (MDRD) 29 L (>60) Glucose 210 H (74-106) mg/dL Calcium 8.9 (8.5-10.1) mg/dL Iron 51 (50-170) ug/dL TIBC 201 L (250-450) ug/dl % Saturation 25 (20-55) % Total Bilirubin 0.3 (0.2-1.0) mg/dL AST 21 (15-37) U/L ALT 38 D (12-78) U/L Alkaline Phosphatase 71 (46-116) U/L Total Protein 7.0 (6.4-8.2) g/dL Albumin 3.3 L (3.4-5.0) g/dL Globulin 3.7 H (2.3-3.5) g/dL Albumin/Globulin Ratio 0.9 L (1.2-2.2) Urine Color (YELLOW) Urine Appearance (CLEAR) Urine pH (5.0-8.0) Ur Specific Kelly (1.008-1.030) Urine Protein (NEGATIVE) mg/dL Urine Glucose (UA) (NEGATIVE) mg/dL Urine Ketones (NEGATIVE) mg/dL Urine Occult Blood (NEGATIVE) Urine Nitrite (NEGATIVE) Urine Bilirubin (NEGATIVE) Urine Urobilinogen (0.2-1.0) EU/dL Ur Leukocyte Esterase (NEGATIVE) Urine RBC (0-5) Urine WBC (0-5) Ur Epithelial Cells Amorphous Sediment Urine Bacteria Urine Mucus 06/03/19 Range/Units 15:38 WBC (4.5-11.0) K/uL RBC (3.30-5.50) M/uL Hgb (12.0-15.0) g/dL Hct (36.0-48.0) % MCV (80-98) fL MCH (27-31) pg MCHC (32-36) % Plt Count (150-400) K/uL Neut % (Auto) (36-66) % Lymph % (Auto) (24-44) % [place] % (Auto) (2-6) % Eos % (Auto) (2-4) % Baso % (Auto) (0-1) % Sodium (140-148) mmol/L Potassium (3.6-5.2) mmol/L Chloride (100-108) mmol/L Carbon Dioxide (21-32) mmol/L Anion Gap (5.0-14.0) mmol/L BUN (7-18) mg/dL Creatinine (0.6-1.0) mg/dL Est Cr Clr Drug Dosing mL/min Estimated GFR (MDRD) (>60) Glucose (74-106) mg/dL Calcium (8.5-10.1) mg/dL Iron (50-170) ug/dL TIBC (250-450) ug/dl % Saturation (20-55) % Total Bilirubin (0.2-1.0) mg/dL AST (15-37) U/L ALT (12-78) U/L Alkaline Phosphatase (46-116) U/L Total Protein (6.4-8.2) g/dL Albumin (3.4-5.0) g/dL Globulin (2.3-3.5) g/dL Albumin/Globulin Ratio (1.2-2.2) Urine Color Yellow (YELLOW) Urine Appearance Cloudy A (CLEAR) Urine pH 7.5 (5.0-8.0) Ur Specific Kelly 1.020 (1.008-1.030) Urine Protein 100 H (NEGATIVE) mg/dL Urine Glucose (UA) Negative (NEGATIVE) mg/dL Urine Ketones Negative (NEGATIVE) mg/dL Urine Occult Blood Small H (NEGATIVE) Urine Nitrite Negative (NEGATIVE) Urine Bilirubin Negative (NEGATIVE) Urine Urobilinogen 0.2 (0.2-1.0) EU/dL Ur Leukocyte Esterase Small H (NEGATIVE) Urine RBC 5-10 H (0-5) Urine WBC 0-5 (0-5) Ur Epithelial Cells Not seen Amorphous Sediment Few Urine Bacteria Moderate Urine Mucus Not seen Meds: Medications Discontinued Medications Generic Name Dose Route Start Last Admin Trade Name Freq PRN Reason Stop Dose Admin Sodium Chloride 1,000 mls @ 500 mls/hr 06/03/19 14:15 06/03/19 14:40 Normal Saline IV 500 mls/hr ASDIRECTED LEONARD Administration Clindamycin Phosphate 300 mg/ 52 mls @ 150 mls/hr 06/03/19 16:40 06/03/19 16: 49 Sodium Chloride IV 06/03/19 17:00 150 mls/hr ONETIME ONE Administration - Re-Assessments/Exams Free Text/Narrative Re-Assessment/Exam: 06/03/19 17:05 chest xray did not show acute problems or infiltate. Pt is anemic with a hg of 9(. This should be worked up. She is very sleepy. Her urine has alot of bacteria so this was cultured and she will be covered with antibiotics. 06/04/19 07:33 Departure - Departure Time of Disposition: 17:06 Disposition: Home, Self-Care 01 Condition: Fair Clinical Impression: Choking due to food (regurgitated), UTI (urinary tract infection) - Discharge Information Instructions: Urinary Tract Infection, Adult, [id number], Choking, Adult Referrals: PCP,None [Primary Care Provider] - Forms: ED Department Discharge Care Plan Goals: push fluids , will notify of the culture result, clindomycin 300mg bid for the next 5 days because of the asiperation, watch diet closely for the next few days use soft foods. try switching the seroquel to bedtime only-- 25 mg rather than taking the seroquel during the day. Sepsis Event Note - Evaluation Sepsis Screening Result: No Definite Risk - Focused Exam Date Exam was Performed: 06/04/19 Time Exam was Performed: 07:33 - My Orders Last 24 Hours: My Active Orders 06/03/19 16:31 CULTURE URINE [RM] Stat - Assessment/Plan Last 24 Hours: My Active Orders 06/03/19 16:31 CULTURE URINE [RM] Stat
[2019-06-03 17:05] VITALS: BP 204/100; PULSE 68
== END 2019-06-03 18:03 | disposition home or self-care (01) ==
LOC: JP.ED 13:15
DX: T17.928A Food in respiratory tract, part unspecified causing other injury, initial encounter (principal); N39.0 Urinary tract infection, site not specified; I10 Essential (primary) hypertension; E11.9 Type 2 diabetes mellitus without complications; F32.9 Major depressive disorder, single episode, unspecified; Z88.5 Allergy status to narcotic agent; Z79.899 Other long term (current) drug therapy; Z79.4 Long term (current) use of insulin; Z85.828 Personal history of other malignant neoplasm of skin
CPT/HCPCS: 36415; 71045; 80053; 81001; 82962; 83550; 85025; 87086; 87088; 87186; 96361; 96365; 99284; J3490; J7030; J7050; 99283

== ENCOUNTER 2019-06-06 19:52 | Inpatient (IN) | payer MEDICARE ==
[2019-06-06] MEDS ORDERED: Sodium Chloride 0.9% 10 ML Syringe FLUSH PRN (20:07)
[2019-06-06] MEDS ORDERED: Ketorolac 30 MG/ML SDV IVPUSH ONE (20:09)
--- NOTE | 2019-06-06 20:13 | EDM.PDOC ---
ED HPI GENERAL MEDICAL PROBLEM - General Chief Complaint: General Stated Complaint: MEDICAL VIA [facility] Time Seen by Provider: 06/06/19 20:03 Source of Information: Reports: Patient, Old Records, RN Notes Reviewed History Limitations: Reports: No Limitations - History of Present Illness INITIAL COMMENTS - FREE TEXT/NARRATIVE: 79-year-old female presents emergency department today via EMS services for increasing chest pain, she had an choking event 3 days prior Heimlich maneuver was performed while she was seated in her wheelchair, was eating a peanut butter and jelly sandwich, food bolus was recovered she was evaluated in the emergency department urine was concerning for infection culture was done chest x -ray unremarkable however concern for aspiration pneumonia started on clindamycin. Urine culture is back consistent with greater than 100,000 Klebsiella Treatments KNOT PICKER CLOTH: Reports: Cold Therapy, See EMS Report Middle Sternum Pain Score (Numeric/FACES): 10 - Related Data Allergies Allergy/AdvReac Type Severity Reaction Status Date / Time codeine Allergy Hives Verified 06/06/19 19:59 Home Meds: Home Meds Mirtazapine [Remeron] 15 mg PO BEDTIME 09/27/17 [History] atorvaSTATin Calcium [Atorvastatin Calcium] 20 mg PO BEDTIME 09/27/17 [History] Citalopram [Citalopram HBr] 20 mg PO DAILY 06/03/19 [History] Folic Acid 1 mg PO DAILY 06/03/19 [History] Insulin Glargine,Hum.Rec.Anlog [Basaglar Kwikpen U-100] 16 unit SUBCUT BEDTIME 06/03/19 [History] LORazepam [Ativan] 0.5 mg PO BID 06/03/19 [History] Memantine HCl [Namenda] 10 mg PO BID 06/03/19 [History] Montelukast [Singulair] 10 mg PO DAILY 06/03/19 [History] Omeprazole 40 mg PO DAILY 06/03/19 [History] Oxybutynin 5 mg PO BEDTIME 06/03/19 [History] Psyllium Husk [Konsyl] 1 tsp PO DAILY 06/03/19 [History] QUEtiapine [SEROquel] 25 mg PO DAILY 06/03/19 [History] Saccharomyces Boulardii [Florastor] 250 mg PO BID 06/03/19 [History] Topiramate 25 mg PO BID 06/03/19 [History] polyethylene glycoL 3350 [Polyethylene Glycol 3350] 17 g PO DAILY 06/03/19 [ History] Acetaminophen [8Hr Arthritis Pain] 650 mg PO ASDIRECTED 06/06/19 [History] Alum Hydrox/Mag Hydrox/Simeth [Maalox Advanced] 1 ml PO ASDIRECTED 06/06/19 [ History] Aspirin [Aspirin EC] 650 mg PO ASDIRECTED 06/06/19 [History] Bisacodyl [Dulcolax] 10 mg RC ASDIRECTED 06/06/19 [History] Clindamycin HCl 300 mg PO BID 06/06/19 [History] Dextran 70/Hypromellose/PF [Artificial Tears Drops] 1 each OP ASDIRECTED [History] Lactase [Lactase Enzyme] 4,500 unit PO ASDIRECTED 06/06/19 [History] Methyl Salicylate/Menthol [Icy Hot] 35.4 gm TP ASDIRECTED 06/06/19 [History] Ondansetron [Zofran ODT] 4 mg PO Q6H PRN 06/06/19 [History] Past Medical History HEENT History: Reports: Impaired Vision Cardiovascular History: Reports: Hypertension Genitourinary History: Reports: UTI, Recurrent 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: , 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 Musculoskeletal History: Reports: Fracture Other Musculoskeletal History: l ankle Neurological History: Reports: Concussion Psychiatric History: Reports: Anxiety, Depression, Panic Attack Endocrine/Metabolic History: Reports: Diabetes, Type II Oncologic (Cancer) History: Reports: Other (See Below) Other Oncologic History: skin CA r arm - Infectious Disease History Infectious Disease History: Reports: Chicken Pox, Measles, Mumps - Past Surgical History HEENT Surgical History: Reports: Cataract Surgery GI Surgical History: Reports: Appendectomy, Cholecystectomy Female Surgical History: Reports: Hysterectomy Dermatological Surgical History: Reports: Skin Biopsy, Other (See Below) Social & Family History - Caffeine Use Caffeine Use: Reports: Soda, Tea ED ROS GENERAL - Review of Systems Review Of Systems: See Below Constitutional: Reports: Fatigue, Other (Body aches). Denies: Fever, Chills HEENT: Reports: No Symptoms Respiratory: Reports: Shortness of Breath Cardiovascular: Reports: Chest Pain GI/Abdominal: Reports: No Symptoms : Reports: No Symptoms Musculoskeletal: Reports: No Symptoms Skin: Reports: No Symptoms ED EXAM, GENERAL - Physical Exam Exam: See Below Exam Limited By: No Limitations General Appearance: Alert, Mild Distress Throat/Mouth: Normal Inspection, Other (Mouth mucosa is dry) Head: Atraumatic, Normocephalic Neck: Normal Inspection, Supple, Non-Tender, Full Range of Motion Respiratory/Chest: No Respiratory Distress, Rhonchi (Bases bilaterally), Other ( Chest wall is tender) Cardiovascular: Regular Rate, Rhythm, No Murmur GI/Abdominal: Soft, Non-Tender Neurological: Alert Course - Vital Signs Last Recorded V/S: Last Vital Signs Temp 97.5 F 06/06/19 20:29 Pulse 68 06/06/19 21:27 Resp 16 06/06/19 21:27 BP 136/54 L 06/06/19 21: Pulse Ox 95 06/06/19 21:27 - Orders/Labs/Meds Orders: Active Orders 24 hr Category Date Time Status Peripheral IV Care [RC] . DIRECTED Care 06/06/19 20:08 Active Lactated Ringers [Ringers, Lactated] 1,000 ml Med 06/06/19 20:15 Active IV ASDIRECTED Sodium Chloride 0.9% [Saline Flush] Med 06/06/19 20:07 Active 10 ml FLUSH ASDIRECTED PRN Peripheral IV Insertion Adult [OM.PC] Stat Oth 06/06/19 20:07 Ordered Medication Orders Lactated Ringer's (Ringers, Lactated) 1,000 mls @ 500 mls/hr IV ASDIRECTED LEONARD Last Admin: 06/06/19 20:44 Dose: 500 mls/hr Sodium Chloride (Saline Flush) 10 ml FLUSH ASDIRECTED PRN PRN Reason: Keep Vein Open Last Admin: 06/06/19 20:45 Dose: 10 ml Labs: Laboratory Tests 06/06/19 06/06/19 06/06/19 Range/Units 20:20 20:20 20:20 WBC 9.5 (4.5-11.0) K/uL RBC 2.79 L (3.30-5.50) M/uL Hgb 8.2 L (12.0-15.0) g/dL Hct 26.2 L (36.0-48.0) % MCV 94 (80-98) fL MCH 29 (27-31) pg MCHC 31 L (32-36) % Plt Count 161 (150-400) K/uL Neut % (Auto) 77 H (36-66) % Lymph % (Auto) 12 L (24-44) % [place] % (Auto) 6 (2-6) % Eos % (Auto) 6 H (2-4) % Baso % (Auto) 0 (0-1) % Sodium 141 (140-148) mmol/L Potassium 4.8 (3.6-5.2) mmol/L Chloride 109 H (100-108) mmol/L Carbon Dioxide 20 L (21-32) mmol/L Anion Gap 16.8 H (5.0-14.0) mmol/L BUN 56 H (7-18) mg/dL Creatinine 1.7 H (0.6-1.0) mg/dL Est Cr Clr Drug Dosing 27.07 mL/min Estimated GFR (MDRD) 29 L (>60) Glucose 199 H (74-106) mg/dL Lactic Acid 1.0 (0.4-2.0) mmol/L Calcium 8.7 (8.5-10.1) mg/dL Total Bilirubin 0.2 (0.2-1.0) mg/dL AST 28 (15-37) U/L ALT 50 (12-78) U/L Alkaline Phosphatase 76 (46-116) U/L Troponin I < 0.017 (0.000-0.056) ng/mL Total Protein 7.1 (6.4-8.2) g/dL Albumin 3.3 L (3.4-5.0) g/dL Globulin 3.8 H (2.3-3.5) g/dL Albumin/Globulin Ratio 0.9 L (1.2-2.2) Meds: Medications Generic Name Dose Route Start Last Admin Trade Name Freq PRN Reason Stop Dose Admin Lactated Ringer's 1,000 mls @ 500 mls/hr 06/06/19 20:15 06/06/19 20:44 Ringers, Lactated IV 500 mls/hr ASDIRECTED LEONARD Administration Sodium Chloride 10 ml 06/06/19 20:07 06/06/19 20:45 Saline Flush FLUSH 10 ml ASDIRECTED PRN Administration Keep Vein Open Discontinued Medications Generic Name Dose Route Start Last Admin Trade Name Freq PRN Reason Stop Dose Admin Ketorolac Tromethamine 15 mg 06/06/19 20:09 06/06/19 20:44 Toradol IVPUSH 06/06/19 20:10 15 mg ONETIME ONE Administration Departure - Departure Time of Disposition: 21:57 Disposition: Admitted As Inpatient 66 Condition: Fair Clinical Impression: Atypical chest pain UTI (urinary tract infection) Qualifiers: Urinary tract infection type: acute cystitis Hematuria presence: without hematuria Qualified Code(s): N30.00 - Acute cystitis without hematuria - Discharge Information Referrals: PCP,None [Primary Care Provider] - Forms: ED Department Discharge Sepsis Event Note - Focused Exam Vital Signs: Vital Signs Temp Pulse Resp BP Pulse Ox 06/06/19 21:27 68 16 136/54 L 95 06/06/19 21:12 69 69 H 146/62 H 96 06/06/19 20:29 97.5 F 71 18 173/75 H 100 06/06/19 20:02 97.5 F 71 18 173/75 H 100 Date Exam was Performed: 06/06/19 Time Exam was Performed: 21:56 - My Orders Last 24 Hours: My Active Orders 06/06/19 20:07 Sodium Chloride 0.9% [Saline Flush] 10 ml FLUSH ASDIRECTED PRN Peripheral IV Insertion Adult [OM.PC] Stat 06/06/19 20:08 Peripheral IV Care [RC] . DIRECTED 06/06/19 20:15 Lactated Ringers [Ringers, Lactated] 1,000 ml IV ASDIRECTED - Assessment/Plan Last 24 Hours: My Active Orders 06/06/19 20:07 Sodium Chloride 0.9% [Saline Flush] 10 ml FLUSH ASDIRECTED PRN Peripheral IV Insertion Adult [OM.PC] Stat 06/06/19 20:08 Peripheral IV Care [RC] . DIRECTED 06/06/19 20:15 Lactated Ringers [Ringers, Lactated] 1,000 ml IV ASDIRECTED Plan: Assessment Acuity = acute Site and laterality = urinary tract infection complicated with chest pain Etiology = Klebsiella as a cause a urinary tract infection from culture, chest pain probably related to recent Heimlich maneuver and choking event Manifestations = none Location of injury = Home Lab values = CBC unremarkable except for hemoglobin low at 8.2 consistent with normochromic anemia creatinine elevated 1.7 consistent chronic renal failure stage G4 lactic acid was negative troponin was negative CT scan of the chest shows no acute process Plan Call discussed case hospitalist on-call at [phone] the currently agreed to come evaluate patient emergency department for admission This note was dictated using [employer] voice recognition software please call with any questions on syntax or grammar.
[2019-06-06] MEDS ORDERED: Lactated Ringers 1,000 ML IV SCH (20:15)
--- NOTE | 2019-06-06 21:42 | CRLCT ---
INDICATION: Chest pain. Patient had chest compression 3 days ago. COMPARISON: Chest radiograph from 06/03/2019 TECHNIQUE: CT examination of the chest was performed without contrast enhancement. 3 mm thick axial sections were obtained from above the apices of the lungs to the lung bases. Please note that all CT scans at this facility use dose modulation, iterative reconstruction, and/or weight-based dosing when appropriate to reduce radiation dose to as low as reasonably achievable. FINDINGS: There is mild diffuse anasarca. There is a noncalcified 9 millimeter nodule in the anterior right middle lobe at the lung base on axial image 75 series 3. This can be correlated with previous CT scans or PET/CT scan. There is a calcified granuloma in the anterior left lower lobe at the lung base. There is mild dependent atelectasis in the posterior lower lungs bilaterally. There is mild precarinal lymphadenopathy with a dominant lymph node with short axis diameter of 10 millimeters. This is nonspecific. No definite hilar adenopathy is seen, but sensitivity is limited by absence of contrast enhancement. There is a minimal pericardial effusion. The heart is normal in appearance for the patient`s age, as are the aorta and other ascending great vessels. There is no sign of supraclavicular or axillary mass or adenopathy. The right lobe of the thyroid is absent, probably from previous surgery. The left lobe is mildly prominent. There are low-density regions within the left lobe, the largest measuring 1.3 centimeters in diameter, cyst or masses. This could be evaluated with ultrasound on a nonemergent basis. The visualized superior liver, spleen, pancreas, kidneys, and adrenals are normal in appearance. There is a moderate hiatal hernia. The gallbladder is absent, consistent with cholecystectomy. The osseous structures are normal in appearance for the patient`s age. There is no sign of any rib fractures to correlate with a history of chest compressions. There is mild scoliosis of the thoracic spine convex towards the right. The sternum and manubrium are intact, with no sign of fracture. There is a mild L2 compression fracture with moderate depression of the superior endplate. This is of indeterminate age. IMPRESSION: No sign of traumatic injury to the chest, with no sign of any rib fractures, sternal fracture, pulmonary contusion, or pneumothorax related to recent chest compressions. Noncalcified 9 millimeter nodule in the anterior right lower lobe at the lung base. This can be followed using PET/CT scanning if no previous CT scans of this region are available for comparison. Minimal pericardial effusion. Moderate hiatal hernia. Absence of the right lobe of the thyroid and mild enlargement of the left lobe of the thyroid with low-density regions, cysts versus nodules. This can be further evaluated with ultrasound on a nonemergent basis. Please note that all CT scans at this facility use dose modulation, iterative reconstruction, and/or weight-based dosing when appropriate to reduce radiation dose to as low as reasonably achievable. Dictated by Geo Wang MD @ Jun 06 2019 9:29PM Signed by Dr. Geo Wang @ Jun 06 2019 9:40PM
[2019-06-06] MEDS ORDERED: Ondansetron 4 MG Tab.DIS PO PRN (23:10)
[2019-06-06] MEDS ORDERED: Albuterol 0.083% 2.5 MG/3 ML Neb Soln NEB PRN (23:10)
[2019-06-06] MEDS ORDERED: Ondansetron 4 MG/2 ML SDV IV PRN (23:10)
[2019-06-06] MEDS ORDERED: Morphine 2 MG/ML Syringe IVPUSH PRN (23:10)
[2019-06-06] MEDS ORDERED: Docusate Sodium 100 MG Cap PO PRN (23:10)
--- NOTE | 2019-06-06 23:11 | PCM.HP.2 ---
H&P History of Present Illness - General Date of Service: 06/06/19 Admit Problem/Dx: Admission Diagnosis/Problem Admission Diagnosis/Problem Urinary tract infection Source of Information: Patient, EMS, Provider, RN History Limitations: Reports: Other (dementia) - History of Present Illness Initial Comments - Free Text/Narative: chief complaint: not feeling well for the past 3 days. 79-year-old female presents emergency department today via EMS services for increasing chest pain, she had an choking event 3 days prior Heimlich maneuver was performed while she was seated in her wheelchair, was eating a peanut butter and jelly sandwich, food bolus was recovered she was evaluated in the emergency department urine was concerning for infection culture was done chest x -ray unremarkable however concern for aspiration pneumonia started on clindamycin. Urine culture is back consistent with greater than 100,000 Klebsiella Treatments TREASURY AGENT: Reports: Cold Therapy, See EMS Report Middle Sternum chest pain Onset of Symptoms: Reports: Gradual (Mrs. Burk reports not feeling well for the past 3 days.) Duration of Symptoms: Reports: Getting Worse Location: Reports: Generalized Improves with: Reports: None Worsens with: Reports: None Associated Symptoms: Reports: Chest Pain, Malaise, Weakness Middle Sternum Pain Score (Numeric/FACES): 10 - Related Data Allergies/Adverse Reactions: Allergies Allergy/AdvReac Type Severity Reaction Status Date / Time codeine Allergy Hives Verified 06/06/19 19:59 Home Medications: Home Meds Mirtazapine [Remeron] 15 mg PO BEDTIME 09/27/17 [History] atorvaSTATin Calcium [Atorvastatin Calcium] 20 mg PO BEDTIME 09/27/17 [History] Citalopram [Citalopram HBr] 20 mg PO DAILY 06/03/19 [History] Folic Acid 1 mg PO DAILY 06/03/19 [History] Insulin Glargine,Hum.Rec.Anlog [Basaglar Kwikpen U-100] 16 unit SUBCUT BEDTIME 06/03/19 [History] LORazepam [Ativan] 0.5 mg PO BID 06/03/19 [History] Memantine HCl [Namenda] 10 mg PO BID 06/03/19 [History] Montelukast [Singulair] 10 mg PO DAILY 06/03/19 [History] Omeprazole 40 mg PO DAILY 06/03/19 [History] Oxybutynin 5 mg PO BEDTIME 06/03/19 [History] Psyllium Husk [Konsyl] 1 tsp PO DAILY 06/03/19 [History] QUEtiapine [SEROquel] 25 mg PO DAILY 06/03/19 [History] Saccharomyces Boulardii [Florastor] 250 mg PO BID 06/03/19 [History] Topiramate 25 mg PO BID 06/03/19 [History] polyethylene glycoL 3350 [Polyethylene Glycol 3350] 17 g PO DAILY 06/03/19 [ History] Acetaminophen [8Hr Arthritis Pain] 650 mg PO ASDIRECTED 06/06/19 [History] Alum Hydrox/Mag Hydrox/Simeth [Maalox Advanced] 1 ml PO ASDIRECTED 06/06/19 [ History] Aspirin [Aspirin EC] 650 mg PO ASDIRECTED 06/06/19 [History] Bisacodyl [Dulcolax] 10 mg RC ASDIRECTED 06/06/19 [History] Clindamycin HCl 300 mg PO BID 06/06/19 [History] Dextran 70/Hypromellose/PF [Artificial Tears Drops] 1 each OP ASDIRECTED [History] Lactase [Lactase Enzyme] 4,500 unit PO ASDIRECTED 06/06/19 [History] Methyl Salicylate/Menthol [Icy Hot] 35.4 gm TP ASDIRECTED 06/06/19 [History] Ondansetron [Zofran ODT] 4 mg PO Q6H PRN 06/06/19 [History] Past Medical History HEENT History: Reports: Impaired Vision Cardiovascular History: Reports: Hypertension Genitourinary History: Reports: UTI, Recurrent 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: , 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 Musculoskeletal History: Reports: Fracture Other Musculoskeletal History: l ankle Neurological History: Reports: Concussion Psychiatric History: Reports: Anxiety, Depression, Panic Attack Endocrine/Metabolic History: Reports: Diabetes, Type II Oncologic (Cancer) History: Reports: Other (See Below) Other Oncologic History: skin CA r arm - Infectious Disease History Infectious Disease History: Reports: Chicken Pox, Measles, Mumps - Past Surgical History HEENT Surgical History: Reports: Cataract Surgery GI Surgical History: Reports: Appendectomy, Cholecystectomy Female Surgical History: Reports: Hysterectomy Dermatological Surgical History: Reports: Skin Biopsy, Other (See Below) Social & Family History - Family History Family Medical History: Noncontributory - Tobacco Use Smoking Status *Q: Never Smoker - Caffeine Use Caffeine Use: Reports: Soda, Tea - Recreational Drug Use Recreational Drug Use: No - Living Situation & Occupation Living situation: Reports: Single, Assisted Living Occupation: Retired H&P Review of Systems - Review of Systems: Review Of Systems: See Below General: Reports: Weakness HEENT: Reports: Glasses Pulmonary: Reports: Pleuritic Chest Pain Cardiovascular: Reports: Chest Pain Gastrointestinal: Reports: Stool Incontinence Genitourinary: Reports: Incontinence Musculoskeletal: Reports: Muscle Pain (generalized) Skin: Reports: Bruising Psychiatric: Reports: No Symptoms Neurological: Reports: Pre-Existing Deficit (report able to stand for transfer from bed to chair. does not walk) Hematologic/Lymphatic: Reports: No Symptoms Immunologic: Reports: No Symptoms Exam - Exam Exam: See Below - Vital Signs Vital Signs: Last Vital Signs Temp 36.6 C 06/06/19 23:02 Pulse 71 06/06/19 23:02 Resp 18 06/06/19 23:02 BP 160/64 H 06/06/19 23:02 Pulse Ox 95 06/06/19 23:02 Weight: 83.915 kg - Exam Quality Assessment: Supplemental Oxygen (oxygen at 1-2 liter per NC) General: Alert, Oriented, Cooperative HEENT: PERRLA, EOMI, Hearing Intact, Mucosa Moist & Marlette, Glasses Neck: Supple, Trachea Midline Lungs: Clear to Auscultation, Normal Respiratory Effort Cardiovascular: Regular Rate, Regular Rhythm, Normal S1, Normal S2 GI/Abdominal Exam: Normal Bowel Sounds, Soft, Non-Tender (Female) Exam: Deferred (wearing a diaper) Rectal (Female) Exam: Deferred Extremities: Slow Capillary Refill, Other (bialteral feet with dryness. right heel with dry ulcer.) Skin: Warm, Dry (feet with dry skin) Neurological: Reflexes Equal Bilateral, Strength Equal Bilateral Neuro Extensive - Mental Status: Alert, Oriented x3, Normal Mood/Affect Neuro Extensive - Motor, Sensory, Reflexes: Motor/Sensory Deficits Psychiatric: Alert, Normal Affect, Normal Mood - Patient Data Lab Results Last 24 hrs: Laboratory Results - last 24 hr 06/06/19 06/06/19 06/06/19 Range/Units 20:20 20:20 20:20 WBC 9.5 (4.5-11.0) K/uL RBC 2.79 L (3.30-5.50) M/uL Hgb 8.2 L (12.0-15.0) g/dL Hct 26.2 L (36.0-48.0) % MCV 94 (80-98) fL MCH 29 (27-31) pg MCHC 31 L (32-36) % Plt Count 161 (150-400) K/uL Neut % (Auto) 77 H (36-66) % Lymph % (Auto) 12 L (24-44) % [place] % (Auto) 6 (2-6) % Eos % (Auto) 6 H (2-4) % Baso % (Auto) 0 (0-1) % Sodium 141 (140-148) mmol/L Potassium 4.8 (3.6-5.2) mmol/L Chloride 109 H (100-108) mmol/L Carbon Dioxide 20 L (21-32) mmol/L Anion Gap 16.8 H (5.0-14.0) mmol/L BUN 56 H (7-18) mg/dL Creatinine 1.7 H (0.6-1.0) mg/dL Est Cr Clr Drug Dosing 27.07 mL/min Estimated GFR (MDRD) 29 L (>60) Glucose 199 H (74-106) mg/dL Lactic Acid 1.0 (0.4-2.0) mmol/L Calcium 8.7 (8.5-10.1) mg/dL Total Bilirubin 0.2 (0.2-1.0) mg/dL AST 28 (15-37) U/L ALT 50 (12-78) U/L Alkaline Phosphatase 76 (46-116) U/L Troponin I < 0.017 (0.000-0.056) ng/mL Total Protein 7.1 (6.4-8.2) g/dL Albumin 3.3 L (3.4-5.0) g/dL Globulin 3.8 H (2.3-3.5) g/dL Albumin/Globulin Ratio 0.9 L (1.2-2.2) Result Diagrams: 06/06/19 20:20 06/06/19 20:20 Sepsis Event Note - Evaluation Sepsis Screening Result: No Definite Risk - Focused Exam Vital Signs: Vital Signs Temp Pulse Resp BP Pulse Ox 06/06/19 23:02 36.6 C 71 18 160/64 H 95 06/06/19 21:27 68 16 136/54 L 95 06/06/19 21:12 69 16 146/62 H 96 06/06/19 20:29 36.4 C 71 18 173/75 H 100 06/06/19 20:02 36.4 C 71 18 173/75 H 100 Date Exam was Performed: 06/06/19 Time Exam was Performed: 23:44 - Problem List (1) UTI (urinary tract infection) SNOMED Code(s): 89026896 ICD Code: N39.0 - URINARY TRACT INFECTION, SITE NOT SPECIFIED Status: Acute Priority: High Current Visit: Yes Qualifiers: Urinary tract infection type: acute cystitis Hematuria presence: with hematuria Qualified Code(s): N30.01 - Acute cystitis with hematuria (2) Type 2 diabetes mellitus SNOMED Code(s): 16921752 ICD Code: E11.9 - TYPE 2 DIABETES MELLITUS WITHOUT COMPLICATIONS Status: Chronic Priority: Low Current Visit: No Qualifiers: Diabetes mellitus termite 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 DIRECTED Care 06/06/19 20:08 Active Lactated Ringers [Ringers, Lactated] 1,000 ml Med 06/06/19 20:15 Active IV ASDIRECTED Sodium Chloride 0.9% [Saline Flush] Med 06/06/19 20:07 Active 10 ml FLUSH ASDIRECTED PRN Peripheral IV Insertion Adult [OM.PC] Stat Oth 06/06/19 20:07 Ordered Resuscitation Status Routine Resus Stat 06/06/19 22:50 Ordered Medication Orders Lactated Ringer's (Ringers, Lactated) 1,000 mls @ 500 mls/hr IV ASDIRECTED LEONARD Last Admin: 06/06/19 20:44 Dose: 500 mls/hr Sodium Chloride (Saline Flush) 10 ml FLUSH ASDIRECTED PRN PRN Reason: Keep Vein Open Last Admin: 06/06/19 20:45 Dose: 10 ml Assessment/Plan Comment:: Assessment and plan of care: UTI 79-year-old female presents emergency department today via EMS services for increasing chest pain, she had an choking event 3 days prior Heimlich maneuver was performed while she was seated in her wheelchair, was eating a peanut butter and jelly sandwich, food bolus was recovered she was evaluated in the emergency department urine was concerning for infection culture was done chest x -ray unremarkable however concern for aspiration pneumonia started on clindamycin. Urine culture is back consistent with greater than 100,000 Klebsiella Treatments TREASURY AGENT: Reports: Cold Therapy, See EMS Report Middle Sternum chest pain Assessment Acuity = acute Site and laterality = urinary tract infection complicated with chest pain Etiology = Klebsiella as a cause a urinary tract infection from culture, chest pain probably related to recent Heimlich maneuver and choking event Manifestations = none Location of injury = Assisted Living Home Lab values = CBC unremarkable except for hemoglobin low at 8.2 consistent with normochromic anemia creatinine elevated 1.7 consistent chronic renal failure stage G4 lactic acid was negative troponin was negative CT scan of the chest shows no acute process. Plan admit to hospital for further care and treatment. Urinary Tract Infection -IV Rocephin 1 gram every 24 hours -IV Fluids Normal Saline 150ml/hr -urine culture +Kiebsiella -am labs CBC, BMP Diabetes Type 2 - - long acting insulin 16 units subcut at bedtime -blood glucose check before meals and at bedtime -consistent carb diet Dementia -continue outpatient medication -bedridden MAINTENANCE ISSUES -DVT prophylaxis; Lovenox 40 mg subcut daily -GI prophylaxis; PPI therapy -Corrales catheter; not indicated -Nutrition; consistent carb diet -Nicotine dependence; not required CODE STATUS-DNR/DNI ADMISSION STATUS-patient will be admitted to inpatient status, expect at least a 2 night hospital stay for evaluation and management of problems as outlined above. At the time of this admission I do not reasonably expected evaluation and management of this problem will require more than a 96 hour hospital stay. DISPOSITION-anticipate discharge to assisted living home after the hospital stay. PRIMARY CARE PROVIDER- Lois Dong, LISA, [facility] HOSPITALIST - Dr. Mercer - Mortality Measure Prognosis:: Good
[2019-06-06] MEDS ORDERED: cefTRIAXone 1 GM in Sodium Chloride 0.9% 50 ML IV SCH (23:30)
[2019-06-07] MEDS: Sodium Chloride 0.9% 1,000 ML IV SCH ×3 (00:04→07:58)
[2019-06-07] MEDS: Topiramate 25 MG Tab PO SCH ×3 (00:04→20:57)
[2019-06-07] MEDS: Memantine 10 MG Tab PO SCH ×3 (00:04→20:56)
[2019-06-07] MEDS: LORazepam 0.5 MG Tab PO SCH ×3 (00:04→20:55)
[2019-06-07] MEDS: Mirtazapine 15 MG Tab PO SCH ×2 (00:04→20:57)
[2019-06-07] MEDS: Insulin Glargine,Human Rec. Analog 100 Units/ML 3 ML Pen SUBCUT SCH ×2 (00:07→20:59)
[2019-06-07] MEDS ORDERED: Hypromellose 0.3% Ophth Soln 15 ML Bottle EYEBOTH PRN (05:19)
[2019-06-07] MEDS ORDERED: Aspirin 325 MG Tab.EC PO PRN (05:30)
[2019-06-07] MEDS ORDERED: Pantoprazole 40 MG Tab.CR PO SCH (07:30)
[2019-06-07] MEDS ORDERED: Non-Formulary Medication 1 Each (Omeprazole [Omeprazole] 40 MG) PO SCH (09:00)
--- NOTE | 2019-06-07 09:50 | PCM.PN ---
- General Info Date of Service: 06/07/19 Subjective Update: There were no acute events overnight following admission. Patient says that she is feeling better today. She is on a small amount of supplemental oxygen. No significant cough. Chest pain is better. No nausea or vomiting. She is a little weaker than usual. She has not had any difficulty swallowing with breakfast this morning. Functional Status: Reports: Pain Controlled, Tolerating Diet - Review of Systems General: Reports: Weakness. Denies: Fever Cardiovascular: Reports: Chest Pain - Patient Data Vitals - Most Recent: Last Vital Signs Temp 35.8 C L 06/07/19 07:00 Pulse 70 06/07/19 07:00 Resp 16 06/07/19 07:00 BP 176/74 H 06/07/19 07:00 Pulse Ox 96 06/07/19 07:36 Weight - Most Recent: 83.915 kg I&O - Last 24 Hours: Intake & Output 06/06/19 06/07/19 06/07/19 22:59 06:59 14:59 Intake Total 780 Balance 780 Lab Results Last 24 Hours: Laboratory Results - last 24 hr 06/06/19 06/06/19 06/06/19 Range/Units 20:20 20:20 20:20 WBC 9.5 (4.5-11.0) K/uL RBC 2.79 L (3.30-5.50) M/uL Hgb 8.2 L (12.0-15.0) g/dL Hct 26.2 L (36.0-48.0) % MCV 94 (80-98) fL MCH 29 (27-31) pg MCHC 31 L (32-36) % Plt Count 161 (150-400) K/uL Neut % (Auto) 77 H (36-66) % Lymph % (Auto) 12 L (24-44) % [place] % (Auto) 6 (2-6) % Eos % (Auto) 6 H (2-4) % Baso % (Auto) 0 (0-1) % Sodium 141 (140-148) mmol/L Potassium 4.8 (3.6-5.2) mmol/L Chloride 109 H (100-108) mmol/L Carbon Dioxide 20 L (21-32) mmol/L Anion Gap 16.8 H (5.0-14.0) mmol/L BUN 56 H (7-18) mg/dL Creatinine 1.7 H (0.6-1.0) mg/dL Est Cr Clr Drug Dosing 27.07 mL/min Estimated GFR (MDRD) 29 L (>60) Glucose 199 H (74-106) mg/dL Lactic Acid 1.0 (0.4-2.0) mmol/L Calcium 8.7 (8.5-10.1) mg/dL Total Bilirubin 0.2 (0.2-1.0) mg/dL AST 28 (15-37) U/L ALT 50 (12-78) U/L Alkaline Phosphatase 76 (46-116) U/L Troponin I < 0.017 (0.000-0.056) ng/mL Total Protein 7.1 (6.4-8.2) g/dL Albumin 3.3 L (3.4-5.0) g/dL Globulin 3.8 H (2.3-3.5) g/dL Albumin/Globulin Ratio 0.9 L (1.2-2.2) Blood Type Gel Antibody Screen Crossmatch 06/07/19 06/07/19 06/07/19 Range/Units 04:15 04:15 04:50 WBC 6.8 (4.5-11.0) K/uL RBC 2.71 L (3.30-5.50) M/uL Hgb 7.8 L (12.0-15.0) g/dL Hct 25.5 L (36.0-48.0) % MCV 94 (80-98) fL MCH 29 (27-31) pg MCHC 31 L (32-36) % Plt Count 138 L (150-400) K/uL Neut % (Auto) 61 (36-66) % Lymph % (Auto) 25 (24-44) % [place] % (Auto) 9 H (2-6) % Eos % (Auto) 6 H (2-4) % Baso % (Auto) 0 (0-1) % Sodium 142 (140-148) mmol/L Potassium 4.3 (3.6-5.2) mmol/L Chloride 111 H (100-108) mmol/L Carbon Dioxide 23 (21-32) mmol/L Anion Gap 12.3 (5.0-14.0) mmol/L BUN 52 H (7-18) mg/dL Creatinine 1.6 H (0.6-1.0) mg/dL Est Cr Clr Drug Dosing 28.76 mL/min Estimated GFR (MDRD) 31 L (>60) Glucose 91 (74-106) mg/dL Lactic Acid (0.4-2.0) mmol/L Calcium 8.4 L (8.5-10.1) mg/dL Total Bilirubin (0.2-1.0) mg/dL AST (15-37) U/L ALT (12-78) U/L Alkaline Phosphatase (46-116) U/L Troponin I (0.000-0.056) ng/mL Total Protein (6.4-8.2) g/dL Albumin (3.4-5.0) g/dL Globulin (2.3-3.5) g/dL Albumin/Globulin Ratio (1.2-2.2) Blood Type A NEGATIVE Gel Antibody Screen Negative Crossmatch See Detail Med Orders - Current: Current Medications Acetaminophen (Tylenol) 650 mg PO Q4H PRN PRN Reason: Pain (Mild 1-3)/fever Albuterol (Proventil Neb Soln) 2.5 mg NEB Q4H PRN PRN Reason: Shortness Of Breath/wheezing Artificial Tears (Genteal Mild To Moderate Ophth Soln) 0 ml EYEBOTH Q4H PRN PRN Reason: DRY EYES Aspirin (Ecotrin) 650 mg PO Q4H PRN PRN Reason: PAIN Cephalexin (Keflex) 500 mg PO BID [facility] Citalopram Hydrobromide (Celexa) 20 mg PO DAILY [facility] Docusate Sodium (Colace) 100 mg PO BID PRN PRN Reason: Constipation Folic Acid (Folic Acid) 1 mg PO DAILY [facility] Influenza Virus Vaccine (Fluzone High-Dose Syringe) 180 mcg IM .ONCE ONE Stop: 06/07/19 10:01 Insulin Glargine (Lantus Solostar) 16 units SUBCUT BEDTIME [facility] Last Admin: 06/07/19 00:07 Dose: 16 units Lorazepam (Ativan) 0.5 mg PO BID [facility] Last Admin: 06/07/19 00:04 Dose: 0.5 mg Memantine (Namenda) 10 mg PO BID [facility] Last Admin: 06/07/19 00:04 Dose: 10 mg Mirtazapine (Remeron) 15 mg PO BEDTIME [facility] Last Admin: 06/07/19 00:04 Dose: 15 mg Morphine Sulfate (Morphine) 2 mg IVPUSH Q2H PRN PRN Reason: Pain (severe 7-10) Ondansetron HCl (Zofran Odt) 4 mg PO Q6H PRN PRN Reason: Nausea able to take PO Ondansetron HCl (Zofran) 4 mg IV Q4H PRN PRN Reason: Nausea/Vomiting Oxycodone HCl (Oxycodone) 5 mg PO Q4H PRN PRN Reason: Pain (moderate 4-6) Pantoprazole Sodium (Protonix) 40 mg PO ACBREAKFAST [facility] Polyethylene Glycol (Miralax) 17 gm PO DAILY [facility] Quetiapine Fumarate (Seroquel) 25 mg PO DAILY [facility] Sodium Chloride (Saline Flush) 10 ml FLUSH ASDIRECTED PRN PRN Reason: Keep Vein Open Last Admin: 06/06/19 20:45 Dose: 10 ml Topiramate (Topamax) 25 mg PO BID [facility] Last Admin: 06/07/19 00:04 Dose: 25 mg Discontinued Medications Lactated Ringer's (Ringers, Lactated) 1,000 mls @ 500 mls/hr IV ASDIRECTED [facility] Last Admin: 06/06/19 20:44 Dose: 500 mls/hr Ceftriaxone Sodium 1 gm/ (Sodium Chloride) 50 mls @ 100 mls/hr IV Q24H [facility] Last Admin: 06/07/19 00:04 Dose: 100 mls/hr Sodium Chloride (Normal Saline) 1,000 mls @ 125 mls/hr IV ASDIRECTED [facility] Last Admin: 06/07/19 07:58 Dose: 125 mls/hr Influenza Virus Vaccine (Pharmacy To Dose - Influenza Vaccine) 1 each IM ONETIME ONE Stop: 06/07/19 10:01 Ketorolac Tromethamine (Toradol) 15 mg IVPUSH ONETIME ONE Stop: 06/06/19 20:10 Last Admin: 06/06/19 20:44 Dose: 15 mg Pantoprazole Sodium (Protonix) 40 mg PO ACBREAKFAST [facility] - Exam Quality Assessment: Supplemental Oxygen General: Alert, Cooperative, No Acute Distress Lungs: Normal Respiratory Effort, Crackles (rare both bases) Cardiovascular: Regular Rate, Regular Rhythm GI/Abdominal Exam: Soft, No Distention Psy/Mental Status: Alert, Normal Affect Sepsis Event Note - Evaluation Sepsis Screening Result: No Definite Risk - Focused Exam Vital Signs: Vital Signs Temp Pulse Resp BP Pulse Ox 06/07/19 07:36 96 06/07/19 07:00 35.8 C L 70 16 176/74 H 95 06/07/19 04:00 35.4 C L 69 16 153/65 H 94 L 06/07/19 01:05 90 L 06/06/19 23:42 92 L 06/06/19 23:37 36.6 C 71 18 160/64 H 95 06/06/19 23:36 95 06/06/19 23:02 36.6 C 71 18 160/64 H 95 Date Exam was Performed: 06/07/19 Time Exam was Performed: 11:25 - Problem List Review Problem List Initiated/Reviewed/Updated: Yes - My Orders Last 24 Hours: My Active Orders 06/06/19 23:36 Influenza Vaccine Charge [RC] .DISCHARGE 06/07/19 04:50 PATIENT RETYPE [BBK] Routine 06/07/19 08:41 RED BLOOD CELLS LP [BBK] Routine TYPE AND SCREEN [BBK] Routine Transfuse Red Blood Cells [COMM] Routine 06/07/19 08:43 Convert IV to Saline Lock [OM.PC] Routine 06/07/19 08:59 Consult to Speech Language Pathology [DRAWING TRACER Evaluation and Treatment] [CONS] Routine 06/07/19 10:00 FLU Vacc [id number](65YR UP)/PF [Fluzone High-Dose Syringe] 180 mcg IM .ONCE ONE 06/07/19 21:00 cephALEXin [Keflex] 500 mg PO BID 06/07/19 Lunch Mechanical Soft Diet [DIET] 06/08/19 05:00 BASIC METABOLIC PANEL,BMP [CHEM] Timed CBC W/O DIFF,HEMOGRAM [HEME] Timed (1) - Plan Plan:: Assessment and Plan- Acute cystitis without hematuria-culture positive for Klebsiella. No fevers or evidence for sepsis -Transition to cephalexin tonight -Saline lock IV Diabetes Type 2-mild hypoglycemia this morning which responded to food. -long acting insulin 16 units subcut at bedtime -blood glucose check before meals and at bedtime -consistent carb diet Possible aspiration-recent episode of choking. Did well with breakfast today. May be having some difficulty with swallowing in the setting of an infection which has not been treated up until last night. -Soft diet this morning -Speech therapy evaluation Normocytic anemia-recently discovered. No evidence for bleeding and no history of bleeding. I suspect this is multifactorial with low normal iron stores and renal disease as discussed below. Hemoglobin less than 8 at this time. -Transfuse 1 unit of packed red blood cells -Iron supplement after hospital discharge Stage III/IV chronic kidney disease-GFR is right around 30 at this time. Chronic kidney disease could be contributing to decreased erythropoietin and the anemia discussed above. -Outpatient follow-up Dementia-mild. No behavior issues. -continue outpatient medication MAINTENANCE ISSUES -DVT prophylaxis; mechanical -GI prophylaxis; PPI therapy -Corrales catheter; not indicated -Nutrition; consistent carb diet DISPOSITION-anticipate discharge to assisted living home after the hospital stay. PRIMARY CARE PROVIDER- Lois Dong NP, [facility] Dominguez Mercer MD
[2019-06-07] MEDS: Citalopram 20 MG Tab PO SCH (10:21)
[2019-06-07] MEDS: Folic Acid 1 MG Tab PO SCH (10:21)
[2019-06-07] MEDS: QUEtiapine 25 MG Tab PO SCH (10:22)
[2019-06-07] MEDS: Pantoprazole 40 MG Tab.CR PO SCH (10:27)
[2019-06-07] MEDS: Polyethylene Glycol 3350 Powder 119 GM Bottle PO SCH (10:27)
[2019-06-07] MEDS: oxyCODONE 5 MG Tab PO PRN ×2 (10:49→20:58)
[2019-06-07] MEDS: Acetaminophen 325 MG Tab PO PRN ×2 (10:50→20:58)
[2019-06-07] MEDS ORDERED: Cephalexin 250 MG Cap PO SCH (21:00)
[2019-06-08] MEDS: Folic Acid 1 MG Tab PO SCH (09:11)
[2019-06-08] MEDS: Citalopram 20 MG Tab PO SCH (09:11)
[2019-06-08] MEDS: Polyethylene Glycol 3350 Powder 119 GM Bottle PO SCH (09:11)
[2019-06-08] MEDS: Pantoprazole 40 MG Tab.CR PO SCH (09:11)
[2019-06-08] MEDS: QUEtiapine 25 MG Tab PO SCH (09:12)
[2019-06-08] MEDS: Memantine 10 MG Tab PO SCH ×2 (09:12→20:56)
[2019-06-08] MEDS: Topiramate 25 MG Tab PO SCH ×2 (09:12→20:56)
[2019-06-08] MEDS: LORazepam 0.5 MG Tab PO SCH ×2 (09:16→20:56)
[2019-06-08] MEDS: Azithromycin 250 MG Tab PO SCH (09:20)
[2019-06-08] MEDS: Cefdinir 300 MG Cap PO SCH ×2 (09:20→20:55)
--- NOTE | 2019-06-08 14:10 | PCM.PN ---
- General Info Date of Service: 06/08/19 Subjective Update: There were no acute events overnight. She does continue to be a little short of breath and continues to require some supplemental oxygen. She had a low- grade temperature elevation this morning. She tells me that she is feeling much better with less pain in the anterior chest. Shortness of breath is a little better. No nausea. She does seem a little more sleepy today and does feel sleepy. Review of the medication sheet from her assisted living reveals that her quetiapine was scheduled at night at home rather than in the morning as it has been scheduled here and this is likely the cause for her sleepiness. Functional Status: Reports: Pain Controlled - Review of Systems General: Reports: Weakness Pulmonary: Reports: Shortness of Breath - Patient Data Vitals - Most Recent: Last Vital Signs Temp 37.3 C 06/08/19 11:46 Pulse 70 06/08/19 11:46 Resp 22 H 06/08/19 11:46 BP 182/86 H 06/08/19 11:46 Pulse Ox 96 06/08/19 11:46 Weight - Most Recent: 90.718 kg I&O - Last 24 Hours: Intake & Output 06/07/19 06/08/19 06/08/19 22:59 06:59 14:59 Intake Total 240 200 Balance 240 200 Lab Results Last 24 Hours: Laboratory Results - last 24 hr 06/08/19 06/08/19 Range/Units 04:08 04:08 WBC 11.4 H (4.5-11.0) K/uL RBC 3.06 L (3.30-5.50) M/uL Hgb 8.8 L (12.0-15.0) g/dL Hct 28.5 L (36.0-48.0) % MCV 93 (80-98) fL MCH 29 (27-31) pg MCHC 31 L (32-36) % Plt Count 143 L (150-400) K/uL Sodium 144 (140-148) mmol/L Potassium 4.3 (3.6-5.2) mmol/L Chloride 112 H (100-108) mmol/L Carbon Dioxide 22 (21-32) mmol/L Anion Gap 14.3 H (5.0-14.0) mmol/L BUN 40 H (7-18) mg/dL Creatinine 1.5 H (0.6-1.0) mg/dL Est Cr Clr Drug Dosing 30.80 mL/min Estimated GFR (MDRD) 33 L (>60) Glucose 163 H (74-106) mg/dL Calcium 8.7 (8.5-10.1) mg/dL Med Orders - Current: Current Medications Acetaminophen (Tylenol) 650 mg PO Q4H PRN PRN Reason: Pain (Mild 1-3)/fever Last Admin: 06/07/19 20:58 Dose: 650 mg Albuterol (Proventil Neb Soln) 2.5 mg NEB Q4H PRN PRN Reason: Shortness Of Breath/wheezing Last Admin: 06/07/19 21:21 Dose: 2.5 mg Amlodipine Besylate (Norvasc) 10 mg PO DAILY [facility] Aripiprazole (Abilify) 2 mg PO DAILY [facility] Artificial Tears (Genteal Mild To Moderate Ophth Soln) 0 ml EYEBOTH Q4H PRN PRN Reason: DRY EYES Aspirin (Ecotrin) 650 mg PO Q4H PRN PRN Reason: PAIN Azithromycin (Zithromax) 500 mg PO DAILY [facility] Last Admin: 06/08/19 09:20 Dose: 500 mg Cefdinir (Omnicef) 300 mg PO BID [facility] Last Admin: 06/08/19 09:20 Dose: 300 mg Citalopram Hydrobromide (Celexa) 20 mg PO DAILY [facility] Last Admin: 06/08/19 09:11 Dose: 20 mg Docusate Sodium (Colace) 100 mg PO BID PRN PRN Reason: Constipation Folic Acid (Folic Acid) 1 mg PO DAILY [facility] Last Admin: 06/08/19 09:11 Dose: 1 mg Insulin Glargine (Lantus Solostar) 16 units SUBCUT BEDTIME [facility] Last Admin: 06/07/19 20:59 Dose: 16 units Lorazepam (Ativan) 0.5 mg PO BID [facility] Last Admin: 06/08/19 09:16 Dose: 0.5 mg Memantine (Namenda) 10 mg PO BID [facility] Last Admin: 06/08/19 09:12 Dose: 10 mg Mirtazapine (Remeron) 15 mg PO BEDTIME [facility] Last Admin: 06/07/19 20:57 Dose: 15 mg Morphine Sulfate (Morphine) 2 mg IVPUSH Q2H PRN PRN Reason: Pain (severe 7-10) Ondansetron HCl (Zofran Odt) 4 mg PO Q6H PRN PRN Reason: Nausea able to take PO Ondansetron HCl (Zofran) 4 mg IV Q4H PRN PRN Reason: Nausea/Vomiting Oxycodone HCl (Oxycodone) 5 mg PO Q4H PRN PRN Reason: Pain (moderate 4-6) Last Admin: 06/07/19 20:58 Dose: 5 mg Pantoprazole Sodium (Protonix) 40 mg PO ACBREAKFAST [facility] Last Admin: 06/08/19 09:11 Dose: 40 mg Polyethylene Glycol (Miralax) 17 gm PO DAILY [facility] Last Admin: 06/08/19 09:11 Dose: Not Given Quetiapine Fumarate (Seroquel) 25 mg PO DAILY [facility] Stop: 06/09/19 09:00 Last Admin: 06/08/19 09:12 Dose: 25 mg Quetiapine Fumarate (Seroquel) 25 mg PO BEDTIME [facility] Sodium Chloride (Saline Flush) 10 ml FLUSH ASDIRECTED PRN PRN Reason: Keep Vein Open Last Admin: 06/06/19 20:45 Dose: 10 ml Topiramate (Topamax) 25 mg PO BID [facility] Last Admin: 06/08/19 09:12 Dose: 25 mg Discontinued Medications Cephalexin (Keflex) 500 mg PO BID [facility] Last Admin: 06/07/19 20:56 Dose: 500 mg Lactated Ringer's (Ringers, Lactated) 1,000 mls @ 500 mls/hr IV ASDIRECTED [facility] Last Admin: 06/06/19 20:44 Dose: 500 mls/hr Ceftriaxone Sodium 1 gm/ (Sodium Chloride) 50 mls @ 100 mls/hr IV Q24H [facility] Last Admin: 06/07/19 00:04 Dose: 100 mls/hr Sodium Chloride (Normal Saline) 1,000 mls @ 125 mls/hr IV ASDIRECTED [facility] Last Admin: 06/07/19 07:58 Dose: 125 mls/hr Influenza Virus Vaccine (Pharmacy To Dose - Influenza Vaccine) 1 each IM ONETIME ONE Stop: 06/07/19 10:01 Influenza Virus Vaccine (Fluzone High-Dose Syringe) 180 mcg IM .ONCE ONE Stop: 06/07/19 10:01 Last Admin: 06/07/19 10:17 Dose: 180 mcg Ketorolac Tromethamine (Toradol) 15 mg IVPUSH ONETIME ONE Stop: 06/06/19 20:10 Last Admin: 06/06/19 20:44 Dose: 15 mg Pantoprazole Sodium (Protonix) 40 mg PO ACBREAKFAST [facility] Last Admin: 06/07/19 18:23 Dose: Not Given - Exam Quality Assessment: Supplemental Oxygen General: Alert, Cooperative, No Acute Distress, Lethargic (Mild) HEENT: Pupils Reactive Lungs: Normal Respiratory Effort, Decreased Breath Sounds (Mild right lung base) , Rales (Rare right lung base) Cardiovascular: Regular Rate, Regular Rhythm GI/Abdominal Exam: Normal Bowel Sounds, Soft, No Distention Extremities: No Pedal Edema. No: Increased Warmth Skin: Warm, Dry Psy/Mental Status: Alert, Normal Affect Sepsis Event Note - Evaluation Sepsis Screening Result: No Definite Risk - Focused Exam Vital Signs: Vital Signs Temp Pulse Resp BP Pulse Ox 06/08/19 11:46 37.3 C 70 22 H 182/86 H 96 06/08/19 07:05 37.3 C 80 24 H 193/80 H 91 L 06/08/19 02:15 36.2 C 78 21 H 181/78 H 99 Date Exam was Performed: 06/08/19 Time Exam was Performed: 14:06 - Problem List Review Problem List Initiated/Reviewed/Updated: Yes - My Orders Last 24 Hours: My Active Orders 06/08/19 08:56 PT Evaluation and Treatment [CONS] Routine 06/08/19 09:00 Azithromycin [Zithromax] 500 mg PO DAILY Cefdinir [Omnicef] 300 mg PO BID 06/08/19 13:30 amLODIPine [Norvasc] 10 mg PO DAILY 06/08/19 16:30 GLUCOSE POC LAB TO COLLECT [POC] QIDACANDBED 06/08/19 21:00 GLUCOSE POC LAB TO COLLECT [POC] QIDACANDBED 06/09/19 05:00 BASIC METABOLIC PANEL,BMP [CHEM] Timed CBC W/O DIFF,HEMOGRAM [HEME] Timed (1) 06/09/19 07:30 GLUCOSE POC LAB TO COLLECT [POC] QIDACANDBED 06/09/19 09:00 ARIPiprazole [Abilify] 2 mg PO DAILY 06/09/19 11:30 GLUCOSE POC LAB TO COLLECT [POC] QIDACANDBED 06/09/19 16:30 GLUCOSE POC LAB TO COLLECT [POC] QIDACANDBED 06/09/19 21:00 GLUCOSE POC LAB TO COLLECT [POC] QIDACANDBED QUEtiapine [SEROqueL] 25 mg PO BEDTIME 06/10/19 07:30 GLUCOSE POC LAB TO COLLECT [POC] QIDACANDBED 06/10/19 11:30 GLUCOSE POC LAB TO COLLECT [POC] QIDACANDBED 06/10/19 16:30 GLUCOSE POC LAB TO COLLECT [POC] QIDACANDBED 06/10/19 21:00 GLUCOSE POC LAB TO COLLECT [POC] QIDACANDBED - Plan Plan:: Assessment and Plan- Acute cystitis without hematuria-culture positive for Klebsiella. No fevers or evidence for sepsis -cefdinir -Saline lock IV -Physical therapy for increased weakness Diabetes Type 2-mild hypoglycemia this morning which responded to food. -long acting insulin 16 units subcut at bedtime -blood glucose check before meals and at bedtime -consistent carb diet Possible aspiration-recent episode of choking. Did well with speech pathology and passed her evaluation. She is hypoxic and has a few crackles in the right lung base that I suspect could be an aspiration pneumonitis. Low-grade fever this morning. -Antibiotic coverage with cefdinir and azithromycin -Mechanical soft diet Mild lethargy-patient more sleepy today than she was yesterday. I suspect this is related to the quetiapine which was given outside of her usual schedule. -Hold quetiapine for the rest of the day -Restart quetiapine tomorrow night Normocytic anemia-recently discovered. No evidence for bleeding and no history of bleeding. I suspect this is multifactorial with low normal iron stores and renal disease as discussed below. Hemoglobin responded nicely to transfusion. 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 Kidney function slowly improving and is in the lower limit of stage III kidney disease. -Outpatient follow-up Dementia-mild. No behavior issues. -continue outpatient medication MAINTENANCE ISSUES -DVT prophylaxis; mechanical -GI prophylaxis; PPI therapy -Corrales catheter; not indicated -Nutrition; consistent carb diet DISPOSITION-anticipate discharge to assisted living home after the hospital stay. PRIMARY CARE PROVIDER- Lois Dong NP, [facility] Dominguez Merecr MD
[2019-06-08] MEDS: amLODIPine 10 MG Tab PO SCH (16:26)
[2019-06-08] MEDS: Mirtazapine 15 MG Tab PO SCH (20:55)
[2019-06-08] MEDS: Insulin Glargine,Human Rec. Analog 100 Units/ML 3 ML Pen SUBCUT SCH (20:56)
[2019-06-09] MEDS: Pantoprazole 40 MG Tab.CR PO SCH (08:24)
[2019-06-09] MEDS: Citalopram 20 MG Tab PO SCH (08:25)
[2019-06-09] MEDS: Memantine 10 MG Tab PO SCH (08:25)
[2019-06-09] MEDS: Folic Acid 1 MG Tab PO SCH (08:25)
[2019-06-09] MEDS: Cefdinir 300 MG Cap PO SCH ×2 (08:26→20:17)
[2019-06-09] MEDS: Topiramate 25 MG Tab PO SCH ×2 (08:27→20:16)
[2019-06-09] MEDS: amLODIPine 10 MG Tab PO SCH (08:27)
[2019-06-09] MEDS: Polyethylene Glycol 3350 Powder 119 GM Bottle PO SCH (08:32)
[2019-06-09] MEDS: LORazepam 0.5 MG Tab PO SCH ×2 (08:41→20:23)
--- NOTE | 2019-06-09 10:48 | PCM.PN ---
- General Info Date of Service: 06/09/19 Subjective Update: No acute events overnight. She is off supplemental oxygen this morning. She does continue to be lethargic. She does answer questions appropriately but is somewhat slow to respond. She has not been able to feed herself over the past couple of days where as normally she can. She says that she feels well. She has not been coughing. She is not complaining of any chest pain. I did review her medications with her assisted living and she is not on any new medications. They report that the somnolence started a couple of days before she got sick and came to the hospital. Functional Status: Reports: Pain Controlled - Review of Systems General: Reports: Fever, Weakness Neurological: Reports: Confusion - Patient Data Vitals - Most Recent: Last Vital Signs Temp 38.3 C H 06/09/19 07:00 Pulse 79 06/09/19 07:00 Resp 18 06/09/19 07:00 BP 183/75 H 06/09/19 08:27 Pulse Ox 94 L 06/09/19 07:00 Weight - Most Recent: 90.718 kg I&O - Last 24 Hours: Intake & Output 06/08/19 06/09/19 06/09/19 22:59 06:59 14:59 Intake Total 780 Balance 780 Lab Results Last 24 Hours: Laboratory Results - last 24 hr 06/09/19 06/09/19 Range/Units 04:18 04:18 WBC 11.2 H (4.5-11.0) K/uL RBC 3.00 L (3.30-5.50) M/uL Hgb 8.8 L (12.0-15.0) g/dL Hct 27.8 L (36.0-48.0) % MCV 93 (80-98) fL MCH 29 (27-31) pg MCHC 32 (32-36) % Plt Count 137 L (150-400) K/uL Sodium 141 (140-148) mmol/L Potassium 3.7 (3.6-5.2) mmol/L Chloride 109 H (100-108) mmol/L Carbon Dioxide 21 (21-32) mmol/L Anion Gap 14.7 H (5.0-14.0) mmol/L BUN 30 H (7-18) mg/dL Creatinine 1.4 H (0.6-1.0) mg/dL Est Cr Clr Drug Dosing 33.00 mL/min Estimated GFR (MDRD) 36 L (>60) Glucose 147 H (74-106) mg/dL Calcium 9.2 (8.5-10.1) mg/dL Med Orders - Current: Current Medications Acetaminophen (Tylenol) 650 mg PO Q4H PRN PRN Reason: Pain (Mild 1-3)/fever Last Admin: 06/07/19 20:58 Dose: 650 mg Albuterol (Proventil Neb Soln) 2.5 mg NEB Q4H PRN PRN Reason: Shortness Of Breath/wheezing Last Admin: 06/07/19 21:21 Dose: 2.5 mg Amlodipine Besylate (Norvasc) 10 mg PO DAILY [facility] Last Admin: 06/09/19 08:27 Dose: 10 mg Aripiprazole (Abilify) 2 mg PO DAILY [facility] Artificial Tears (Genteal Mild To Moderate Ophth Soln) 0 ml EYEBOTH Q4H PRN PRN Reason: DRY EYES Aspirin (Ecotrin) 650 mg PO Q4H PRN PRN Reason: PAIN Azithromycin (Zithromax) 500 mg PO DAILY [facility] Last Admin: 06/08/19 09:20 Dose: 500 mg Cefdinir (Omnicef) 300 mg PO BID [facility] Last Admin: 06/09/19 08:26 Dose: 300 mg Citalopram Hydrobromide (Celexa) 20 mg PO DAILY [facility] Last Admin: 06/09/19 08:25 Dose: 20 mg Docusate Sodium (Colace) 100 mg PO BID PRN PRN Reason: Constipation Folic Acid (Folic Acid) 1 mg PO DAILY [facility] Last Admin: 06/09/19 08:25 Dose: 1 mg Insulin Glargine (Lantus Solostar) 16 units SUBCUT BEDTIME [facility] Last Admin: 06/08/19 20:56 Dose: 16 units Lorazepam (Ativan) 0.5 mg PO BID [facility] Last Admin: 06/09/19 08:41 Dose: 0.5 mg Memantine (Namenda) 10 mg PO BID [facility] Last Admin: 06/09/19 08:25 Dose: 10 mg Mirtazapine (Remeron) 15 mg PO BEDTIME [facility] Last Admin: 06/08/19 20:55 Dose: 15 mg Morphine Sulfate (Morphine) 2 mg IVPUSH Q2H PRN PRN Reason: Pain (severe 7-10) Ondansetron HCl (Zofran Odt) 4 mg PO Q6H PRN PRN Reason: Nausea able to take PO Ondansetron HCl (Zofran) 4 mg IV Q4H PRN PRN Reason: Nausea/Vomiting Oxycodone HCl (Oxycodone) 5 mg PO Q4H PRN PRN Reason: Pain (moderate 4-6) Last Admin: 06/07/19 20:58 Dose: 5 mg Pantoprazole Sodium (Protonix) 40 mg PO ACBREAKFAST [facility] Last Admin: 06/09/19 08:24 Dose: 40 mg Polyethylene Glycol (Miralax) 17 gm PO DAILY [facility] Last Admin: 06/09/19 08:32 Dose: Not Given Quetiapine Fumarate (Seroquel) 25 mg PO BEDTIME [facility] Sodium Chloride (Saline Flush) 10 ml FLUSH ASDIRECTED PRN PRN Reason: Keep Vein Open Last Admin: 06/06/19 20:45 Dose: 10 ml Topiramate (Topamax) 25 mg PO BID [facility] Last Admin: 06/09/19 08:27 Dose: 25 mg Discontinued Medications Cephalexin (Keflex) 500 mg PO BID [facility] Last Admin: 06/07/19 20:56 Dose: 500 mg Lactated Ringer's (Ringers, Lactated) 1,000 mls @ 500 mls/hr IV ASDIRECTED [facility] Last Admin: 06/06/19 20:44 Dose: 500 mls/hr Ceftriaxone Sodium 1 gm/ (Sodium Chloride) 50 mls @ 100 mls/hr IV Q24H [facility] Last Admin: 06/07/19 00:04 Dose: 100 mls/hr Sodium Chloride (Normal Saline) 1,000 mls @ 125 mls/hr IV ASDIRECTED [facility] Last Admin: 06/07/19 07:58 Dose: 125 mls/hr Influenza Virus Vaccine (Pharmacy To Dose - Influenza Vaccine) 1 each IM ONETIME ONE Stop: 06/07/19 10:01 Influenza Virus Vaccine (Fluzone High-Dose Syringe) 180 mcg IM .ONCE [facility] Stop: 06/07/19 10:01 Last Admin: 06/07/19 10:17 Dose: 180 mcg Ketorolac Tromethamine (Toradol) 15 mg IVPUSH ONETIME [facility] Stop: 06/06/19 20:10 Last Admin: 06/06/19 20:44 Dose: 15 mg Pantoprazole Sodium (Protonix) 40 mg PO ACBREAKFAST [facility] Last Admin: 06/07/19 18:23 Dose: Not Given Quetiapine Fumarate (Seroquel) 25 mg PO DAILY [facility] Stop: 06/09/19 09:00 Last Admin: 06/08/19 09:12 Dose: 25 mg - Exam Quality Assessment: No: Supplemental Oxygen General: Alert, Cooperative, No Acute Distress, Lethargic Lungs: Clear to Auscultation, Normal Respiratory Effort Cardiovascular: Regular Rate, Regular Rhythm GI/Abdominal Exam: Soft, No Distention Extremities: No Pedal Edema. No: Increased Warmth Skin: Warm, Dry Neurological: No New Focal Deficit Psy/Mental Status: Alert. No: Agitated Sepsis Event Note - Evaluation Sepsis Screening Result: No Definite Risk - Focused Exam Vital Signs: Vital Signs Temp Pulse Resp BP BP Pulse Ox Pulse Ox 06/09/19 08:27 183/75 H 06/09/19 07:00 38.3 C H 79 18 169/71 H 94 L 06/09/19 02:49 36.9 C 85 20 178/78 H 93 L 06/08/19 23:58 95 Date Exam was Performed: 06/09/19 Time Exam was Performed: 12:46 - Problem List Review Problem List Initiated/Reviewed/Updated: Yes - My Orders Last 24 Hours: My Active Orders 06/08/19 13:30 amLODIPine [Norvasc] 10 mg PO DAILY 06/09/19 09:00 ARIPiprazole [Abilify] 2 mg PO DAILY 06/09/19 10:36 Head wo Cont [CT] Routine 06/09/19 11:30 GLUCOSE POC LAB TO COLLECT [POC] QIDACANDBED 06/09/19 16:30 GLUCOSE POC LAB TO COLLECT [POC] QIDACANDBED 06/09/19 21:00 GLUCOSE POC LAB TO COLLECT [POC] QIDACANDBED QUEtiapine [SEROqueL] 25 mg PO BEDTIME 06/10/19 05:00 BASIC METABOLIC PANEL,BMP [CHEM] Timed CBC W/O DIFF,HEMOGRAM [HEME] Timed (1) 06/10/19 07:30 GLUCOSE POC LAB TO COLLECT [POC] QIDACANDBED 06/10/19 11:30 GLUCOSE POC LAB TO COLLECT [POC] QIDACANDBED 06/10/19 16:30 GLUCOSE POC LAB TO COLLECT [POC] QIDACANDBED 06/10/19 21:00 GLUCOSE POC LAB TO COLLECT [POC] QIDACANDBED - Plan Plan:: Assessment and Plan- Somnolence/hypoactive delirium-she is being treated for infections but I would expect after more than 48 hours on antibiotics these should be playing a small if any role in the delirium. She is on multiple medications that could cause somnolence including her antipsychotics, benzodiazepines and mood stabilizer. There are no focal findings but we will assess further with a head CT. She may have impaired clearance of her medications because of her decreased renal function. -Head CT -Consider reduction of medications (memantine? Since it is the newest) Acute cystitis without hematuria-culture positive for Klebsiella. No fevers or evidence for sepsis -cefdinir -Saline lock IV -Physical therapy for increased weakness Diabetes Type 2-blood sugars have improved. -long acting insulin 16 units subcut at bedtime -blood glucose check before meals and at bedtime -consistent carb diet Possible aspiration-recent episode of choking. Did well with speech pathology and passed her evaluation. No longer hypoxic but did have a low-grade fever this morning. -Antibiotic coverage with cefdinir and azithromycin -Mechanical soft diet Normocytic anemia-recently discovered. No evidence for bleeding and no history of bleeding. I suspect this is multifactorial with low normal iron stores and renal disease as discussed below. Hemoglobin responded nicely to transfusion. 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 -Outpatient follow-up Dementia-mild. No behavior issues. -continue outpatient medication MAINTENANCE ISSUES -DVT prophylaxis; mechanical -GI prophylaxis; PPI therapy -Corrales catheter; not indicated -Nutrition; consistent carb diet DISPOSITION-anticipate discharge to assisted living home after the hospital stay. PRIMARY CARE PROVIDER- Lois Dong NP, [facility] Dominguez Mercer MD
[2019-06-09] MEDS: Azithromycin 250 MG Tab PO SCH (11:24)
[2019-06-09] MEDS: QUEtiapine 25 MG Tab PO SCH ×2 (11:25→20:17)
--- NOTE | 2019-06-09 15:10 | CT ---
Head wo Cont CLINICAL HISTORY: Delirium COMPARISON: 2018 TECHNIQUE: Transverse scans were obtained from the base of the skull through the vertex without IV contrast on a multislice, multidetector CT scanner. Auto dosage reduction and iterative reconstruction techniques employed. FINDINGS: No focal abnormal parenchymal density is identified. There is no mass effect, hemorrhage, or extraaxial collection. The basal cisterns and sulci over the convexities are prominent. The ventricles are mildly prominent. IMPRESSION: Age-related atrophy. No focal lesion, mass effect or hemorrhage
[2019-06-09] MEDS: Mirtazapine 15 MG Tab PO SCH (20:18)
[2019-06-09] MEDS: Insulin Glargine,Human Rec. Analog 100 Units/ML 3 ML Pen SUBCUT SCH (21:28)
[2019-06-10] MEDS: amLODIPine 10 MG Tab PO SCH ×2 (07:32→09:48)
[2019-06-10] MEDS: Pantoprazole 40 MG Tab.CR PO SCH (07:33)
[2019-06-10] MEDS: Polyethylene Glycol 3350 Powder 119 GM Bottle PO SCH (09:49)
[2019-06-10] MEDS: Cefdinir 300 MG Cap PO SCH ×2 (09:50→21:15)
[2019-06-10] MEDS: Azithromycin 250 MG Tab PO SCH (09:50)
[2019-06-10] MEDS: Folic Acid 1 MG Tab PO SCH (09:50)
[2019-06-10] MEDS: Citalopram 20 MG Tab PO SCH (09:50)
[2019-06-10] MEDS: Topiramate 25 MG Tab PO SCH ×2 (09:51→21:15)
--- NOTE | 2019-06-10 10:47 | PCM.PN ---
- General Info Date of Service: 06/10/19 Subjective Update: No acute events overnight. Patient slept well. She is alert and interactive today and seems to be back to her usual self after the amantadine was discontinued yesterday. She feels well and does not feel short of breath. No cough. No abdominal pain. Appetite is good this morning. Functional Status: Reports: Pain Controlled, Tolerating Diet - Review of Systems General: Denies: Fever Pulmonary: Denies: Shortness of Breath - Patient Data Vitals - Most Recent: Last Vital Signs Temp 37.6 C 06/10/19 07:00 Pulse 92 06/10/19 09:08 Resp 18 06/10/19 07:00 BP 176/70 H 06/10/19 09:08 Pulse Ox 92 L 06/10/19 09:08 Weight - Most Recent: 90.718 kg I&O - Last 24 Hours: Intake & Output 06/09/19 06/10/19 06/10/19 22:59 06:59 14:59 Intake Total 236 200 Balance 236 200 Lab Results Last 24 Hours: Laboratory Results - last 24 hr 06/10/19 06/10/19 Range/Units 05:35 05:35 WBC 8.3 (4.5-11.0) K/uL RBC 2.85 L (3.30-5.50) M/uL Hgb 8.4 L (12.0-15.0) g/dL Hct 26.8 L (36.0-48.0) % MCV 94 (80-98) fL MCH 30 (27-31) pg MCHC 31 L (32-36) % Plt Count 146 L (150-400) K/uL Sodium 141 (140-148) mmol/L Potassium 3.7 (3.6-5.2) mmol/L Chloride 110 H (100-108) mmol/L Carbon Dioxide 22 (21-32) mmol/L Anion Gap 12.7 (5.0-14.0) mmol/L BUN 31 H (7-18) mg/dL Creatinine 1.5 H (0.6-1.0) mg/dL Est Cr Clr Drug Dosing 30.80 mL/min Estimated GFR (MDRD) 33 L (>60) Glucose 110 H (74-106) mg/dL Calcium 9.0 (8.5-10.1) mg/dL Med Orders - Current: Current Medications Acetaminophen (Tylenol) 650 mg PO Q4H PRN PRN Reason: Pain (Mild 1-3)/fever Last Admin: 06/07/19 20:58 Dose: 650 mg Albuterol (Proventil Neb Soln) 2.5 mg NEB Q4H PRN PRN Reason: Shortness Of Breath/wheezing Last Admin: 06/07/19 21:21 Dose: 2.5 mg Amlodipine Besylate (Norvasc) 10 mg PO DAILY [facility] Last Admin: 06/10/19 09:48 Dose: Not Given Aripiprazole (Abilify) 2 mg PO DAILY [facility] Last Admin: 06/10/19 09:50 Dose: 2 mg Artificial Tears (Genteal Mild To Moderate Ophth Soln) 0 ml EYEBOTH Q4H PRN PRN Reason: DRY EYES Aspirin (Ecotrin) 650 mg PO Q4H PRN PRN Reason: PAIN Azithromycin (Zithromax) 500 mg PO DAILY [facility] Last Admin: 06/10/19 09:50 Dose: 500 mg Cefdinir (Omnicef) 300 mg PO BID [facility] Last Admin: 06/10/19 09:50 Dose: 300 mg Citalopram Hydrobromide (Celexa) 20 mg PO DAILY [facility] Last Admin: 06/10/19 09:50 Dose: 20 mg Docusate Sodium (Colace) 100 mg PO BID PRN PRN Reason: Constipation Folic Acid (Folic Acid) 1 mg PO DAILY [facility] Last Admin: 06/10/19 09:50 Dose: 1 mg Insulin Glargine (Lantus Solostar) 16 units SUBCUT BEDTIME [facility] Last Admin: 06/09/19 21:28 Dose: 16 units Lorazepam (Ativan) 0.5 mg PO BID [facility] Last Admin: 06/09/19 20:23 Dose: 0.5 mg Memantine (Namenda) 5 mg PO BID [facility] Mirtazapine (Remeron) 15 mg PO BEDTIME [facility] Last Admin: 06/09/19 20:18 Dose: 15 mg Morphine Sulfate (Morphine) 2 mg IVPUSH Q2H PRN PRN Reason: Pain (severe 7-10) Ondansetron HCl (Zofran Odt) 4 mg PO Q6H PRN PRN Reason: Nausea able to take PO Ondansetron HCl (Zofran) 4 mg IV Q4H PRN PRN Reason: Nausea/Vomiting Oxycodone HCl (Oxycodone) 5 mg PO Q4H PRN PRN Reason: Pain (moderate 4-6) Last Admin: 06/07/19 20:58 Dose: 5 mg Pantoprazole Sodium (Protonix) 40 mg PO ACBREAKFAST [facility] Last Admin: 06/10/19 07:33 Dose: 40 mg Polyethylene Glycol (Miralax) 17 gm PO DAILY [facility] Last Admin: 06/10/19 09:49 Dose: Not Given Quetiapine Fumarate (Seroquel) 25 mg PO BEDTIME [facility] Last Admin: 06/09/19 20:17 Dose: 25 mg Sodium Chloride (Saline Flush) 10 ml FLUSH ASDIRECTED PRN PRN Reason: Keep Vein Open Last Admin: 06/06/19 20:45 Dose: 10 ml Topiramate (Topamax) 25 mg PO BID [facility] Last Admin: 06/10/19 09:51 Dose: 25 mg Discontinued Medications Cephalexin (Keflex) 500 mg PO BID [facility] Last Admin: 06/07/19 20:56 Dose: 500 mg Lactated Ringer's (Ringers, Lactated) 1,000 mls @ 500 mls/hr IV ASDIRECTED [facility] Last Admin: 06/06/19 20:44 Dose: 500 mls/hr Ceftriaxone Sodium 1 gm/ (Sodium Chloride) 50 mls @ 100 mls/hr IV Q24H [facility] Last Admin: 06/07/19 00:04 Dose: 100 mls/hr Sodium Chloride (Normal Saline) 1,000 mls @ 125 mls/hr IV ASDIRECTED [facility] Last Admin: 06/07/19 07:58 Dose: 125 mls/hr Influenza Virus Vaccine (Pharmacy To Dose - Influenza Vaccine) 1 each IM ONETIME ONE Stop: 06/07/19 10:01 Influenza Virus Vaccine (Fluzone High-Dose Syringe) 180 mcg IM .ONCE ONE Stop: 06/07/19 10:01 Last Admin: 06/07/19 10:17 Dose: 180 mcg Ketorolac Tromethamine (Toradol) 15 mg IVPUSH ONETIME ONE Stop: 06/06/19 20:10 Last Admin: 06/06/19 20:44 Dose: 15 mg Memantine (Namenda) 10 mg PO BID [facility] Last Admin: 06/09/19 08:25 Dose: 10 mg Pantoprazole Sodium (Protonix) 40 mg PO ACBREAKFAST [facility] Last Admin: 06/07/19 18:23 Dose: Not Given Quetiapine Fumarate (Seroquel) 25 mg PO DAILY [facility] Stop: 06/09/19 09:00 Last Admin: 06/09/19 11:25 Dose: 25 mg - Exam Quality Assessment: No: Supplemental Oxygen General: Alert, Oriented, Cooperative, No Acute Distress Lungs: Clear to Auscultation, Normal Respiratory Effort Cardiovascular: Regular Rate, Regular Rhythm GI/Abdominal Exam: Soft, No Distention Extremities: No Pedal Edema Psy/Mental Status: Alert, Normal Affect Sepsis Event Note - Evaluation Sepsis Screening Result: No Definite Risk - Focused Exam Vital Signs: Vital Signs Temp Pulse Resp BP BP BP BP 06/10/19 09:08 92 176/70 H 06/10/19 07:32 194/80 H 06/10/19 07:00 37.6 C 76 18 194/80 H 06/10/19 03:00 37.2 C 71 18 152/56 H 06/09/19 22:52 37.2 C 72 16 138/53 L Pulse Ox 06/10/19 09:08 92 L 06/10/19 07:32 06/10/19 07:00 93 L 06/10/19 03:00 93 L 06/09/19 22:52 93 L Date Exam was Performed: 06/10/19 Time Exam was Performed: 16:39 - Problem List Review Problem List Initiated/Reviewed/Updated: Yes - My Orders Last 24 Hours: My Active Orders 06/09/19 21:00 QUEtiapine [SEROqueL] 25 mg PO BEDTIME 06/10/19 10:46 Potassium Chloride [Klor-Con M20] 40 meq PO ONETIME ONE 06/10/19 11:30 GLUCOSE POC LAB TO COLLECT [POC] QIDACANDBED 06/10/19 16:30 GLUCOSE POC LAB TO COLLECT [POC] QIDACANDBED 06/10/19 21:00 GLUCOSE POC LAB TO COLLECT [POC] QIDACANDBED Memantine [Namenda] 5 mg PO BID 06/11/19 05:00 CBC W/O DIFF,HEMOGRAM [HEME] Timed (1) - Plan Plan:: Assessment and Plan- Somnolence/hypoactive delirium-much better today after memantine was stopped yesterday. -Restart memantine at lower dose tonight (renal dosing is 5 mg twice daily) Acute cystitis without hematuria-culture positive for Klebsiella. No fevers or evidence for sepsis -cefdinir -Saline lock IV -Physical therapy for increased weakness Diabetes Type 2-blood sugars have been well controlled. -long acting insulin 16 units subcut at bedtime -blood glucose check before meals and at bedtime -consistent carb diet Possible aspiration-recent episode of choking. Did well with speech pathology and passed her evaluation. Off oxygen and doing well. -Antibiotic coverage with cefdinir and azithromycin -Mechanical soft diet Normocytic anemia-recently discovered. No evidence for bleeding and no history of bleeding. I suspect this is multifactorial with low normal iron stores and renal disease as discussed below. Hemoglobin responded nicely to transfusion. 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 -Outpatient follow-up Dementia-mild. No behavior issues. -continue outpatient medication MAINTENANCE ISSUES -DVT prophylaxis; mechanical -GI prophylaxis; PPI therapy -Corrales catheter; not indicated -Nutrition; consistent carb diet DISPOSITION-anticipate discharge to assisted living home after the hospital stay. PRIMARY CARE PROVIDER- Lois Dong NP, [facility] Dominguez Mercer MD
[2019-06-10] MEDS ORDERED: Potassium Chloride 20 MEQ Tab.ER PO ONE (11:30)
[2019-06-10] MEDS: LORazepam 0.5 MG Tab PO SCH ×2 (11:38→21:15)
[2019-06-10] MEDS: Insulin Glargine,Human Rec. Analog 100 Units/ML 3 ML Pen SUBCUT SCH (21:12)
[2019-06-10] MEDS: Mirtazapine 15 MG Tab PO SCH (21:15)
[2019-06-10] MEDS: Memantine 10 MG Tab PO SCH (21:15)
[2019-06-10] MEDS: QUEtiapine 25 MG Tab PO SCH (21:15)
[2019-06-11] MEDS: Pantoprazole 40 MG Tab.CR PO SCH (07:36)
[2019-06-11] MEDS: Citalopram 20 MG Tab PO SCH (08:41)
[2019-06-11] MEDS: Memantine 10 MG Tab PO SCH ×2 (08:41→21:10)
[2019-06-11] MEDS: Folic Acid 1 MG Tab PO SCH (08:41)
[2019-06-11] MEDS: amLODIPine 10 MG Tab PO SCH (08:42)
[2019-06-11] MEDS: Cefdinir 300 MG Cap PO SCH ×2 (08:42→21:10)
[2019-06-11] MEDS: Topiramate 25 MG Tab PO SCH ×2 (08:43→21:11)
[2019-06-11] MEDS: LORazepam 0.5 MG Tab PO SCH ×2 (08:43→21:09)
[2019-06-11] MEDS: Azithromycin 250 MG Tab PO SCH (08:43)
[2019-06-11] MEDS: Polyethylene Glycol 3350 Powder 119 GM Bottle PO SCH (08:52)
--- NOTE | 2019-06-11 10:43 | PCM.PN ---
- General Info Date of Service: 06/11/19 Subjective Update: No acute events overnight. No somnolence today. Slept well last night. Had a shower today. No shortness of breath or cough. No fevers. No abdominal pain or nausea. She did have a bowel movement. Functional Status: Reports: Pain Controlled, Tolerating Diet - Review of Systems General: Denies: Fever Neurological: Denies: Confusion - Patient Data Vitals - Most Recent: Last Vital Signs Temp 36.6 C 06/11/19 10:37 Pulse 70 06/11/19 10:37 Resp 18 06/11/19 10:37 BP 150/61 H 06/11/19 10:37 Pulse Ox 96 06/11/19 10:37 Weight - Most Recent: 90.718 kg I&O - Last 24 Hours: Intake & Output 06/10/19 06/11/19 06/11/19 22:59 06:59 14:59 Intake Total 480 400 Balance 480 400 Lab Results Last 24 Hours: Laboratory Results - last 24 hr 06/11/19 Range/Units 05:57 WBC 7.3 (4.5-11.0) K/uL RBC 2.91 L (3.30-5.50) M/uL Hgb 8.5 L (12.0-15.0) g/dL Hct 27.3 L (36.0-48.0) % MCV 94 (80-98) fL MCH 29 (27-31) pg MCHC 31 L (32-36) % Plt Count 156 (150-400) K/uL Med Orders - Current: Current Medications Acetaminophen (Tylenol) 650 mg PO Q4H PRN PRN Reason: Pain (Mild 1-3)/fever Last Admin: 06/07/19 20:58 Dose: 650 mg Albuterol (Proventil Neb Soln) 2.5 mg NEB Q4H PRN PRN Reason: Shortness Of Breath/wheezing Last Admin: 06/07/19 21:21 Dose: 2.5 mg Amlodipine Besylate (Norvasc) 10 mg PO DAILY [facility] Last Admin: 06/11/19 08:42 Dose: 10 mg Aripiprazole (Abilify) 2 mg PO DAILY [facility] Last Admin: 06/11/19 08:41 Dose: 2 mg Artificial Tears (Genteal Mild To Moderate Ophth Soln) 0 ml EYEBOTH Q4H PRN PRN Reason: DRY EYES Aspirin (Ecotrin) 650 mg PO Q4H PRN PRN Reason: PAIN Azithromycin (Zithromax) 500 mg PO DAILY [facility] Last Admin: 06/11/19 08:43 Dose: 500 mg Cefdinir (Omnicef) 300 mg PO BID [facility] Last Admin: 06/11/19 08:42 Dose: 300 mg Citalopram Hydrobromide (Celexa) 20 mg PO DAILY [facility] Last Admin: 06/11/19 08:41 Dose: 20 mg Docusate Sodium (Colace) 100 mg PO BID PRN PRN Reason: Constipation Folic Acid (Folic Acid) 1 mg PO DAILY [facility] Last Admin: 06/11/19 08:41 Dose: 1 mg Insulin Glargine (Lantus Solostar) 16 units SUBCUT BEDTIME [facility] Last Admin: 06/10/19 21:12 Dose: 16 units Lorazepam (Ativan) 0.5 mg PO BID [facility] Last Admin: 06/11/19 08:43 Dose: 0.5 mg Memantine (Namenda) 5 mg PO BID [facility] Last Admin: 06/11/19 08:41 Dose: 5 mg Mirtazapine (Remeron) 15 mg PO BEDTIME [facility] Last Admin: 06/10/19 21:15 Dose: 15 mg Morphine Sulfate (Morphine) 2 mg IVPUSH Q2H PRN PRN Reason: Pain (severe 7-10) Ondansetron HCl (Zofran Odt) 4 mg PO Q6H PRN PRN Reason: Nausea able to take PO Ondansetron HCl (Zofran) 4 mg IV Q4H PRN PRN Reason: Nausea/Vomiting Oxycodone HCl (Oxycodone) 5 mg PO Q4H PRN PRN Reason: Pain (moderate 4-6) Last Admin: 06/07/19 20:58 Dose: 5 mg Pantoprazole Sodium (Protonix) 40 mg PO ACBREAKFAST [facility] Last Admin: 06/11/19 07:36 Dose: 40 mg Polyethylene Glycol (Miralax) 17 gm PO DAILY [facility] Last Admin: 06/11/19 08:52 Dose: Not Given Quetiapine Fumarate (Seroquel) 25 mg PO BEDTIME [facility] Last Admin: 06/10/19 21:15 Dose: 25 mg Sodium Chloride (Saline Flush) 10 ml FLUSH ASDIRECTED PRN PRN Reason: Keep Vein Open Last Admin: 06/06/19 20:45 Dose: 10 ml Topiramate (Topamax) 25 mg PO BID [facility] Last Admin: 06/11/19 08:43 Dose: 25 mg Discontinued Medications Cephalexin (Keflex) 500 mg PO BID [facility] Last Admin: 06/07/19 20:56 Dose: 500 mg Lactated Ringer's (Ringers, Lactated) 1,000 mls @ 500 mls/hr IV ASDIRECTED [facility] Last Admin: 06/06/19 20:44 Dose: 500 mls/hr Ceftriaxone Sodium 1 gm/ (Sodium Chloride) 50 mls @ 100 mls/hr IV Q24H [facility] Last Admin: 06/07/19 00:04 Dose: 100 mls/hr Sodium Chloride (Normal Saline) 1,000 mls @ 125 mls/hr IV ASDIRECTED [facility] Last Admin: 06/07/19 07:58 Dose: 125 mls/hr Influenza Virus Vaccine (Pharmacy To Dose - Influenza Vaccine) 1 each IM ONETIME ONE Stop: 06/07/19 10:01 Influenza Virus Vaccine (Fluzone High-Dose Syringe) 180 mcg IM .ONCE ONE Stop: 06/07/19 10:01 Last Admin: 06/07/19 10:17 Dose: 180 mcg Ketorolac Tromethamine (Toradol) 15 mg IVPUSH ONETIME ONE Stop: 06/06/19 20:10 Last Admin: 06/06/19 20:44 Dose: 15 mg Memantine (Namenda) 10 mg PO BID [facility] Last Admin: 06/09/19 08:25 Dose: 10 mg Pantoprazole Sodium (Protonix) 40 mg PO ACBREAKFAST [facility] Last Admin: 06/07/19 18:23 Dose: Not Given Potassium Chloride (Klor-Con M20) 40 meq PO ONETIME ONE Stop: 06/10/19 11:31 Last Admin: 06/10/19 11:39 Dose: 40 meq Quetiapine Fumarate (Seroquel) 25 mg PO DAILY [facility] Stop: 06/09/19 09:00 Last Admin: 06/09/19 11:25 Dose: 25 mg - Exam Quality Assessment: No: Supplemental Oxygen General: Alert, Cooperative, No Acute Distress Lungs: Clear to Auscultation, Normal Respiratory Effort Cardiovascular: Regular Rate, Regular Rhythm GI/Abdominal Exam: Soft, No Distention Extremities: No Pedal Edema. No: Increased Warmth Skin: Warm, Dry Psy/Mental Status: Alert, Normal Affect Sepsis Event Note - Evaluation Sepsis Screening Result: No Definite Risk - Focused Exam Vital Signs: Vital Signs Temp Pulse Resp BP BP BP Pulse Ox 06/11/19 10:37 36.6 C 70 18 150/61 H 96 06/11/19 08:42 163/64 H 06/11/19 07:28 36.9 C 71 18 169/79 H 95 06/11/19 03:00 37.2 C 70 18 155/64 H 94 L 06/10/19 22:57 37.2 C 64 16 141/59 H 94 L Date Exam was Performed: 06/11/19 Time Exam was Performed: 13:06 - Problem List Review Problem List Initiated/Reviewed/Updated: Yes - My Orders Last 24 Hours: My Active Orders 06/10/19 21:00 Memantine [Namenda] 5 mg PO BID 06/11/19 11:30 GLUCOSE POC LAB TO COLLECT [POC] QIDACANDBED 06/11/19 16:30 GLUCOSE POC LAB TO COLLECT [POC] QIDACANDBED 06/11/19 21:00 GLUCOSE POC LAB TO COLLECT [POC] QIDACANDBED 06/12/19 07:30 GLUCOSE POC LAB TO COLLECT [POC] QIDACANDBED 06/12/19 11:30 GLUCOSE POC LAB TO COLLECT [POC] QIDACANDBED 06/12/19 16:30 GLUCOSE POC LAB TO COLLECT [POC] QIDACANDBED 06/12/19 21:00 GLUCOSE POC LAB TO COLLECT [POC] QIDACANDBED 06/13/19 07:30 GLUCOSE POC LAB TO COLLECT [POC] QIDACANDBED 06/13/19 11:30 GLUCOSE POC LAB TO COLLECT [POC] QIDACANDBED 06/13/19 16:30 GLUCOSE POC LAB TO COLLECT [POC] QIDACANDBED 06/13/19 21:00 GLUCOSE POC LAB TO COLLECT [POC] QIDACANDBED - Plan Plan:: Assessment and Plan- Somnolence/hypoactive delirium-she has done well for the past 2 days. -Continue memantine at lower dose tonight (renal dosing is 5 mg twice daily) Acute cystitis without hematuria-culture positive for Klebsiella. No fevers or evidence for sepsis -cefdinir (discontinue tomorrow morning) -Saline lock IV -Physical therapy for increased weakness Diabetes Type 2-blood sugars have been well controlled. -long acting insulin 16 units subcut at bedtime -blood glucose check before meals and at bedtime -consistent carb diet Possible aspiration-recent episode of choking. Did well with speech pathology and passed her evaluation. Off oxygen and doing well. -Antibiotic coverage with cefdinir and azithromycin (discontinue tomorrow morning) -Mechanical soft diet Normocytic anemia-recently discovered. No evidence for bleeding and no history of bleeding. I suspect this is multifactorial with low normal iron stores and renal disease as discussed below. Hemoglobin responded nicely to transfusion. 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 -Outpatient follow-up Dementia-mild. No behavior issues. -continue outpatient medication MAINTENANCE ISSUES -DVT prophylaxis; mechanical -GI prophylaxis; PPI therapy -Corrales catheter; not indicated -Nutrition; consistent carb diet DISPOSITION-anticipate discharge to assisted living home after the hospital stay. PRIMARY CARE PROVIDER- Lois Dong NP, [facility] Dominguez Mercer MD
[2019-06-11] MEDS: Insulin Glargine,Human Rec. Analog 100 Units/ML 3 ML Pen SUBCUT SCH (21:09)
[2019-06-11] MEDS: Mirtazapine 15 MG Tab PO SCH (21:10)
[2019-06-11] MEDS: QUEtiapine 25 MG Tab PO SCH (21:11)
[2019-06-12] MEDS: Pantoprazole 40 MG Tab.CR PO SCH (07:03)
--- NOTE | 2019-06-12 08:18 | PCM.DCSUM1 ---
Discharge Summary - Hospital Course Brief History: 79-year-old female with history of insulin-dependent diabetes mellitus with severe neuropathy and mild dementia who presented with chest pain 2 days after having a choking episode and requiring the Heimlich maneuver. She was admitted for management of pain as well as a urinary tract infection and probable aspiration pneumonitis. Diagnosis: Stroke: No - Discharge Data Discharge Date: 06/12/19 Discharge Disposition: Home, Self-Care 01 Condition: Good - Referral to Home Health Primary Care Physician: PCP None - Patient Summary/Data Consults: Consultations 06/06/19 23:10 Consult to Spiritual Care [CONS] Routine Special Instructions: daily prayers for health 06/07/19 08:59 Consult to Speech Language Pathology [IC ENGINEER Evaluation and Treatment] [CONS] Routine Please Evaluate and Treat IC ENGINEER Reason for Consult: Swallow This query below is only for informational purposes and is not editable. Admission Diagnosis/Problem: Urinary tract infection 06/08/19 08:56 PT Evaluation and Treatment [CONS] Routine Please Evaluate and Treat. PT Reason for Consult: Strengthening This query below is only for informational purposes and is not editable. Admission Diagnosis/Problem: Urinary tract infection Hospital Course: Jenny presented to the emergency room with chest pain 2 days after having a choking episode and requiring the Heimlich maneuver. She had been diagnosed with a possible UTI and had been started on clindamycin with concern for aspiration pneumonitis 2 days prior. Unfortunately during those 2 days she had a progression of her chest pain as well as increasing somnolence and weakness. Work-up in the emergency room was suggestive of persistent urinary tract infection as well as iron deficiency anemia and a slight worsening of her kidney function from baseline. There is no evidence for acute coronary syndrome and her chest pain was thought to be related to the Heimlich maneuver. She was admitted to the hospital for management of anemia, infection, hypoxic respiratory failure with aspiration pneumonitis and somnolence. Overnight following admission there were no acute issues. Her hemoglobin did drop down to 7.8 and she did get 1 unit of blood the next day. She had some fevers and was requiring supplemental oxygen throughout the first day. Into the second and third day of the hospital stay she was quite sleepy. There was nothing focal just very sleepy. I was concerned this was related to medications and did make some changes without much improvement. We did get a head CT which was unremarkable. I did review her medications with the assisted living and they mentioned that she had recently been started on Namenda with an increasing dose. This medication was stopped after review and it was noted that it should be dosed based on renal function. Her creatinine clearance is low enough that she should only be on 5 mg twice a day. With the change in the medication her mental status improved rather quickly. She has been stable with the 5 mg twice daily dose. Regarding the aspiration pneumonitis, the patient has recovered nicely. She is now off oxygen. Her cough has resolved. Her chest pain has resolved. Also noted at the time of presentation was a persistent urinary tract infection. Previous culture had grown out a pansensitive Klebsiella. We did use the cefdinir to cover respiratory pathogens as well as the urinary pathogens. She has completed adequate antibiotic therapies for her infectious processes at this time. She is stable and safe for discharge back to her assisted living at this point. She is done with all of her antibiotics. I did recommend that we decrease her dose of Namenda to 5 mg twice a day. I did also recommend a iron supplement to use for her anemia which appears to be a combination of iron deficiency and possibly chronic renal disease with a GFR in the low 30s. - Patient Instructions Diet: Diabetic Diet Activity: As Tolerated Showering/Bathing: May Shower Notify Provider of: Fever, Increased Pain Other/Special Instructions: 1. Decrease your dose of memantine (Namenda) to 5 mg twice daily. The dose decrease is necessary because of your decreased creatinine clearance. 2. You have completed adequate antibiotic therapy for your aspiration pneumonitis and UTI. 3. Continue your other home meds as previously prescribed. - Discharge Plan *PRESCRIPTION DRUG MONITORING PROGRAM REVIEWED*: Not Applicable *COPY OF PRESCRIPTION DRUG MONITORING REPORT IN PATIENT SADE: Not Applicable Prescriptions/Med Rec: Ferrous Sulfate 325 mg PO BIDAC #60 tablet Memantine HCl [Namenda] 5 mg PO BID #30 tablet Home Medications: Home Meds Mirtazapine [Remeron] 15 mg PO BEDTIME 09/27/17 [History] atorvaSTATin Calcium [Atorvastatin Calcium] 20 mg PO BEDTIME 09/27/17 [History] Citalopram [Citalopram HBr] 20 mg PO DAILY 06/03/19 [History] Folic Acid 1 mg PO DAILY 06/03/19 [History] Insulin Glargine,Hum.Rec.Anlog [Basaglar Kwikpen U-100] 16 unit SUBCUT BEDTIME 06/03/19 [History] LORazepam [Ativan] 0.5 mg PO BID 06/03/19 [History] Montelukast [Singulair] 10 mg PO BEDTIME 06/03/19 [History] Omeprazole 40 mg PO DAILY 06/03/19 [History] Oxybutynin 5 mg PO BEDTIME 06/03/19 [History] Psyllium Husk [Konsyl] 1 tsp PO DAILY 06/03/19 [History] QUEtiapine [SEROquel] 25 mg PO BEDTIME 06/03/19 [History] Saccharomyces Boulardii [Florastor] 500 mg PO BID 06/03/19 [History] Topiramate 25 mg PO BID 06/03/19 [History] polyethylene glycoL 3350 [Polyethylene Glycol 3350] 17 g PO DAILY 06/03/19 [ History] Acetaminophen [8Hr Arthritis Pain] 650 mg PO ASDIRECTED 06/06/19 [History] Alum Hydrox/Mag Hydrox/Simeth [Maalox Advanced] 1 ml PO ASDIRECTED 06/06/19 [ History] Aspirin [Aspirin EC] 650 mg PO Q4HR PRN 06/06/19 [History] Bisacodyl [Dulcolax] 10 mg RC ASDIRECTED 06/06/19 [History] Dextran 70/Hypromellose/PF [Artificial Tears Drops] 1 - 2 drop EYEBOTH Q4H PRN 06/06/19 [History] Lactase [Lactase Enzyme] 4,500 unit PO ASDIRECTED 06/06/19 [History] Methyl Salicylate/Menthol [Icy Hot] 35.4 gm TP ASDIRECTED 06/06/19 [History] Ondansetron [Zofran ODT] 4 mg PO Q6H PRN 06/06/19 [History] ARIPiprazole [Abilify] 2 mg PO DAILY 06/08/19 [History] amLODIPine Besylate [Amlodipine Besylate] 10 mg PO DAILY 06/08/19 [History] Ferrous Sulfate 325 mg PO BIDAC #60 tablet 06/11/19 [Rx] Memantine HCl [Namenda] 5 mg PO BID #30 tablet 06/11/19 [Rx] Patient Handouts: Urinary Tract Infection, Adult, [id number] Referrals: Lois Davalos PA [Ordering Only Provider] - (1 week - f/u hospital stay for aspiration, UTI, lethargy and memantine dose change ) - Discharge Summary/Plan Comment DC Time >30 min.: No - Patient Data Vitals - Most Recent: Last Vital Signs Temp 37.2 C 06/12/19 07:04 Pulse 78 06/12/19 07:04 Resp 18 06/12/19 07:04 BP 166/70 H 06/12/19 07:04 Pulse Ox 95 06/12/19 07:04 Weight - Most Recent: 90.718 kg I&O - Last 24 hours: Intake & Output 06/11/19 06/12/19 06/12/19 22:59 06:59 14:59 Intake Total 1100 Balance 1100 Med Orders - Current: Current Medications Acetaminophen (Tylenol) 650 mg PO Q4H PRN PRN Reason: Pain (Mild 1-3)/fever Last Admin: 06/07/19 20:58 Dose: 650 mg Albuterol (Proventil Neb Soln) 2.5 mg NEB Q4H PRN PRN Reason: Shortness Of Breath/wheezing Last Admin: 06/07/19 21:21 Dose: 2.5 mg Amlodipine Besylate (Norvasc) 10 mg PO DAILY [facility] Last Admin: 06/11/19 08:42 Dose: 10 mg Aripiprazole (Abilify) 2 mg PO DAILY [facility] Last Admin: 06/11/19 08:41 Dose: 2 mg Artificial Tears (Genteal Mild To Moderate Ophth Soln) 0 ml EYEBOTH Q4H PRN PRN Reason: DRY EYES Aspirin (Ecotrin) 650 mg PO Q4H PRN PRN Reason: PAIN Azithromycin (Zithromax) 500 mg PO DAILY [facility] Last Admin: 06/11/19 08:43 Dose: 500 mg Cefdinir (Omnicef) 300 mg PO BID [facility] Last Admin: 06/11/19 21:10 Dose: 300 mg Citalopram Hydrobromide (Celexa) 20 mg PO DAILY [facility] Last Admin: 06/11/19 08:41 Dose: 20 mg Docusate Sodium (Colace) 100 mg PO BID PRN PRN Reason: Constipation Folic Acid (Folic Acid) 1 mg PO DAILY [facility] Last Admin: 06/11/19 08:41 Dose: 1 mg Insulin Glargine (Lantus Solostar) 16 units SUBCUT BEDTIME [facility] Last Admin: 06/11/19 21:09 Dose: 16 units Lorazepam (Ativan) 0.5 mg PO BID [facility] Last Admin: 06/11/19 21:09 Dose: 0.5 mg Memantine (Namenda) 5 mg PO BID [facility] Last Admin: 06/11/19 21:10 Dose: 5 mg Mirtazapine (Remeron) 15 mg PO BEDTIME [facility] Last Admin: 06/11/19 21:10 Dose: 15 mg Morphine Sulfate (Morphine) 2 mg IVPUSH Q2H PRN PRN Reason: Pain (severe 7-10) Ondansetron HCl (Zofran Odt) 4 mg PO Q6H PRN PRN Reason: Nausea able to take PO Ondansetron HCl (Zofran) 4 mg IV Q4H PRN PRN Reason: Nausea/Vomiting Oxycodone HCl (Oxycodone) 5 mg PO Q4H PRN PRN Reason: Pain (moderate 4-6) Last Admin: 06/07/19 20:58 Dose: 5 mg Pantoprazole Sodium (Protonix) 40 mg PO ACBREAKFAST [facility] Last Admin: 06/12/19 07:03 Dose: 40 mg Polyethylene Glycol (Miralax) 17 gm PO DAILY [facility] Last Admin: 06/11/19 08:52 Dose: Not Given Quetiapine Fumarate (Seroquel) 25 mg PO BEDTIME [facility] Last Admin: 06/11/19 21:11 Dose: 25 mg Sodium Chloride (Saline Flush) 10 ml FLUSH ASDIRECTED PRN PRN Reason: Keep Vein Open Last Admin: 06/06/19 20:45 Dose: 10 ml Topiramate (Topamax) 25 mg PO BID [facility] Last Admin: 06/11/19 21:11 Dose: 25 mg Discontinued Medications Cephalexin (Keflex) 500 mg PO BID [facility] Last Admin: 06/07/19 20:56 Dose: 500 mg Lactated Ringer's (Ringers, Lactated) 1,000 mls @ 500 mls/hr IV ASDIRECTED [facility] Last Admin: 06/06/19 20:44 Dose: 500 mls/hr Ceftriaxone Sodium 1 gm/ (Sodium Chloride) 50 mls @ 100 mls/hr IV Q24H [facility] Last Admin: 06/07/19 00:04 Dose: 100 mls/hr Sodium Chloride (Normal Saline) 1,000 mls @ 125 mls/hr IV ASDIRECTED [facility] Last Admin: 06/07/19 07:58 Dose: 125 mls/hr Influenza Virus Vaccine (Pharmacy To Dose - Influenza Vaccine) 1 each IM ONETIME ONE Stop: 06/07/19 10:01 Influenza Virus Vaccine (Fluzone High-Dose Syringe) 180 mcg IM .ONCE ONE Stop: 06/07/19 10:01 Last Admin: 06/07/19 10:17 Dose: 180 mcg Ketorolac Tromethamine (Toradol) 15 mg IVPUSH ONETIME ONE Stop: 06/06/19 20:10 Last Admin: 06/06/19 20:44 Dose: 15 mg Memantine (Namenda) 10 mg PO BID [facility] Last Admin: 06/09/19 08:25 Dose: 10 mg Pantoprazole Sodium (Protonix) 40 mg PO ACBREAKFAST [facility] Last Admin: 06/07/19 18:23 Dose: Not Given Potassium Chloride (Klor-Con M20) 40 meq PO ONETIME ONE Stop: 06/10/19 11:31 Last Admin: 06/10/19 11:39 Dose: 40 meq Quetiapine Fumarate (Seroquel) 25 mg PO DAILY [facility] Stop: 06/09/19 09:00 Last Admin: 06/09/19 11:25 Dose: 25 mg - Exam Quality Assessment: Denies: Supplemental Oxygen General: Reports: Alert, Cooperative, No Acute Distress Lungs: Reports: Normal Respiratory Effort GI/Abdominal Exam: Soft, No Distention Extremities: No Pedal Edema Psy/Mental Status: Reports: Alert, Normal Affect
[2019-06-12] MEDS: LORazepam 0.5 MG Tab PO SCH (08:48)
[2019-06-12] MEDS: Cefdinir 300 MG Cap PO SCH (08:49)
[2019-06-12] MEDS: Memantine 10 MG Tab PO SCH (08:49)
[2019-06-12] MEDS: Azithromycin 250 MG Tab PO SCH (08:49)
[2019-06-12] MEDS: Citalopram 20 MG Tab PO SCH (08:50)
[2019-06-12] MEDS: Polyethylene Glycol 3350 Powder 119 GM Bottle PO SCH (08:50)
[2019-06-12] MEDS: Folic Acid 1 MG Tab PO SCH (08:50)
[2019-06-12] MEDS: Topiramate 25 MG Tab PO SCH (08:50)
[2019-06-12] MEDS: amLODIPine 10 MG Tab PO SCH (08:51)
[2019-06-12 10:15] VITALS: BP 150/64; PULSE 72
== END 2019-06-12 15:45 | disposition home or self-care (01) | DRG 177 ==
LOC: JP.ED 19:52 → JP.MS 22:06
PROVIDERS: ADMIT Internal Medicine; ATTEND Internal Medicine
PROC: 30233N1 Transfusion of Nonautologous Red Blood Cells into Peripheral Vein, Percutaneous Approach (ICD-10-PCS; principal; 2019-06-07)
DX: N39.0 Urinary tract infection, site not specified (principal); R07.89 Other chest pain; J69.0 Pneumonitis due to inhalation of food and vomit; I10 Essential (primary) hypertension; Z87.440 Personal history of urinary (tract) infections; J96.91 Respiratory failure, unspecified with hypoxia; N30.01 Acute cystitis with hematuria; E11.9 Type 2 diabetes mellitus without complications; Z85.828 Personal history of other malignant neoplasm of skin; Z66 Do not resuscitate; H54.7 Unspecified visual loss; F41.9 Anxiety disorder, unspecified; F32.9 Major depressive disorder, single episode, unspecified; G30.9 Alzheimer's disease, unspecified; F02.80 Dementia in other diseases classified elsewhere, unspecified severity, without behavioral disturbance, psychotic disturbance, mood disturbance, and anxiety; B96.89 Other specified bacterial agents as the cause of diseases classified elsewhere; I12.9 Hypertensive chronic kidney disease with stage 1 through stage 4 chronic kidney disease, or unspecified chronic kidney disease; N18.3 Chronic kidney disease, stage 3 (moderate); E11.22 Type 2 diabetes mellitus with diabetic chronic kidney disease; R41.0 Disorientation, unspecified; E11.649 Type 2 diabetes mellitus with hypoglycemia without coma; E11.40 Type 2 diabetes mellitus with diabetic neuropathy, unspecified; D50.9 Iron deficiency anemia, unspecified; Z79.4 Long term (current) use of insulin; Z88.5 Allergy status to narcotic agent; Z90.49 Acquired absence of other specified parts of digestive tract; Z79.82 Long term (current) use of aspirin; Z79.2 Long term (current) use of antibiotics; Z79.899 Other long term (current) drug therapy; Z90.710 Acquired absence of both cervix and uterus; Z98.49 Cataract extraction status, unspecified eye; Z99.81 Dependence on supplemental oxygen
CPT/HCPCS: 36415; 71250; 80053; 83605; 84484; 85025; 96361; 96374; 99284; 99285; J1885; J7120; 36430; 70450; 70450-26; 80048; 82962; 85027; 86850; 86900; 86901; 86920; 86922; 90662; 92610-GN; 94640; 94762; 97110-GP; 97162-GP; A9270-GY; G0008; J0696; J1815-GY; J7030; J7050; P9016

== ENCOUNTER 2020-12-02 08:25 | Emergency (ER) | payer MEDICARE ==
[2020-12-02] MEDS ORDERED: Cefdinir 300 MG Cap PO ONE (11:28)
--- NOTE | 2020-12-02 11:33 | EDM.PDOC ---
ED HPI GENERAL MEDICAL PROBLEM - General Chief Complaint: Gastrointestinal Problem Stated Complaint: MEDICAL [facility]IA [facility] Time Seen by Provider: 12/02/20 10:00 Source of Information: Reports: Patient History Limitations: Reports: Altered Mental Status - History of Present Illness INITIAL COMMENTS - FREE TEXT/NARRATIVE: This is an 80-year-old female with a history of dementia who presents with concerns of possible rectal bleeding. By report the [facility] found blood in her undergarments this morning. Patient does not have any recollection of this although history is limited due to her dementia. She is concerned of discomfort in the suprapubic area. She does have a history of recurrent UTIs. She is unable to provide any further history. No blood thinner use noted. Pelvic Pain Score (Numeric/FACES): 2 - Related Data Allergies Allergy/AdvReac Type Severity Reaction Status Date / Time codeine Allergy Hives Verified 12/02/20 08:36 lactose AdvReac Abdominal Verified 12/02/20 08:36 Pain Home Meds: Home Meds Mirtazapine [Remeron] 15 mg PO BEDTIME 09/27/17 [History] atorvaSTATin Calcium [Atorvastatin Calcium] 20 mg PO BEDTIME 09/27/17 [History] Citalopram [Citalopram HBr] 20 mg PO DAILY 06/03/19 [History] Folic Acid 1 mg PO DAILY 06/03/19 [History] Insulin Glargine,Hum.Rec.Anlog [Toluaglreji Myers U-100] 16 unit SUBCUT BEDTIME 06/03/19 [History] LORazepam [Ativan] 0.5 mg PO BID 06/03/19 [History] Montelukast [Singulair] 10 mg PO BEDTIME 06/03/19 [History] Omeprazole 40 mg PO DAILY 06/03/19 [History] Oxybutynin 5 mg PO BEDTIME 06/03/19 [History] Psyllium Husk [Konsyl] 1 tsp PO DAILY 06/03/19 [History] QUEtiapine [SEROquel] 25 mg PO BEDTIME 06/03/19 [History] Saccharomyces Boulardii [Florastor] 500 mg PO BID 06/03/19 [History] Topiramate 25 mg PO BID 06/03/19 [History] polyethylene glycoL 3350 [Polyethylene Glycol 3350] 17 g PO DAILY 06/03/19 [History] Acetaminophen [8Hr Arthritis Pain] 650 mg PO ASDIRECTED 06/06/19 [History] Alum Hydrox/Mag Hydrox/Simeth [Maalox Advanced] 1 ml PO ASDIRECTED 06/06/19 [History] Aspirin [Aspirin EC] 650 mg PO Q4HR PRN 06/06/19 [History] Dextran 70/Hypromellose/PF [Artificial Tears Drops] 1 - 2 drop EYEBOTH Q4H PRN 06/06/19 [History] Lactase [Lactase Enzyme] 4,500 unit PO ASDIRECTED 06/06/19 [History] Methyl Salicylate/Menthol [Icy Hot] 35.4 gm TP ASDIRECTED 06/06/19 [History] Ondansetron [Zofran ODT] 4 mg PO Q6H PRN 06/06/19 [History] bisacodyL [Dulcolax] 10 mg RC ASDIRECTED 06/06/19 [History] ARIPiprazole [Abilify] 2 mg PO DAILY 06/08/19 [History] amLODIPine Besylate [Amlodipine Besylate] 10 mg PO DAILY 06/08/19 [History] Ferrous Sulfate 325 mg PO BIDAC #60 tablet 06/11/19 [Rx] Memantine HCl [Namenda] 5 mg PO BID #30 tablet 06/11/19 [Rx] Cefdinir [Omnicef] 300 mg PO BID #10 cap 12/02/20 [Rx] Past Medical History HEENT History: Reports: Impaired Vision Cardiovascular History: Reports: Hypertension, Other (See Below) Other Cardiovascular History: atypical chest pain Respiratory History: Reports: Other (See Below) Other Respiratory History: acute respiratory faliure with hypoxia. aspiration pneumonitis Gastrointestinal History: Reports: Chronic Diarrhea Genitourinary History: Reports: Chronic Renal Insuffiency, UTI, Recurrent Other Genitourinary History: stage 3 ARABIC LINGUIST History: Reports: , Spontaneous Musculoskeletal History: Reports: Fracture Other Musculoskeletal History: l ankle Neurological History: Reports: Concussion, Neuropathy, Diabetic Psychiatric History: Reports: Anxiety, Dementia, Depression, Panic Attack, Other (See Below) Other Psychiatric History: mood disorder Endocrine/Metabolic History: Reports: Diabetes, Type II Oncologic (Cancer) History: Reports: Other (See Below) Other Oncologic History: skin CA r arm - Infectious Disease History Infectious Disease History: Reports: Chicken Pox, Measles, Mumps - Past Surgical History HEENT Surgical History: Reports: Cataract Surgery GI Surgical History: Reports: Appendectomy, Cholecystectomy Female Surgical History: Reports: Hysterectomy Dermatological Surgical History: Reports: Skin Biopsy, Other (See Below) Social & Family History - Family History Family Medical History: No Pertinent Family History - Tobacco Use Tobacco Use Status *Q: Never Tobacco User - Caffeine Use Caffeine Use: Reports: None - Recreational Drug Use Recreational Drug Use: No - Living Situation & Occupation Living situation: Reports: Single, Assisted Living Occupation: Retired ED ROS GENERAL - Review of Systems Review Of Systems: Unable To Obtain Reason Not Obtained: Dementia ED EXAM, GI/ABD - Physical Exam Exam: See Below Exam Limited By: No Limitations General Appearance: Alert, No Apparent Distress Ears: Normal External Exam Nose: Normal Inspection Throat/Mouth: Normal Inspection Head: Atraumatic, Normocephalic Neck: Supple Respiratory/Chest: Lungs Clear Cardiovascular: Regular Rate, Rhythm GI/Abdominal Exam: No Distention, Other (Suprapubic tenderness noted, remainder of abdominal exam benign). No: Guarding (Female) Exam: Normal External Exam Rectal (Female) Exam: Other (No hemorrhoids, no dried blood around the rectum, rectal vault is empty on digital exam without any evidence of bleeding) Back Exam: Normal Inspection Extremities: Normal Inspection Neurological: Alert. No: Normal Cognition (Follows commands, moving all extremities) Psychiatric: Normal Affect, Normal Mood Skin Exam: Warm, Dry Course - Vital Signs Last Recorded V/S: Last Vital Signs Temp 36.6 C 12/02/20 08:46 Pulse 64 12/02/20 08:46 Resp 16 12/02/20 08:46 BP 151/65 H 12/02/20 08:46 Pulse Ox 99 12/02/20 08:46 - Orders/Labs/Meds Labs: Laboratory Tests 12/02/20 12/02/20 12/02/20 Range/Units 08:46 08:46 08:46 WBC 5.4 (4.5-11.0) K/uL RBC 3.11 L (3.30-5.50) M/uL Hgb 9.3 L (12.0-15.0) g/dL Hct 29.3 L (36.0-48.0) % MCV 94 (80-98) fL MCH 30 (27-31) pg MCHC 32 (32-36) % Plt Count 136 L (150-400) K/uL PT 10.8 (9.5-12.0) sec INR 0.99 (0.80-1.20) Sodium 141 (140-148) mmol/L Potassium 5.0 (3.6-5.2) mmol/L Chloride 110 H (100-108) mmol/L Carbon Dioxide 23 (21-32) mmol/L Anion Gap 13.0 (5.0-14.0) mmol/L BUN 63 H D (7-18) mg/dL Creatinine 1.7 H (0.6-1.0) mg/dL Est Cr Clr Drug Dosing 26.62 mL/min Estimated GFR (MDRD) 29 L (>60) Glucose 112 H (74-106) mg/dL Calcium 9.1 (8.5-10.1) mg/dL Total Bilirubin 0.2 (0.2-1.0) mg/dL AST 17 (15-37) U/L ALT 38 (12-78) U/L Alkaline Phosphatase 72 (46-116) U/L Total Protein 6.4 (6.4-8.2) g/dL Albumin 2.9 L (3.4-5.0) g/dL Globulin 3.5 (2.3-3.5) g/dL Albumin/Globulin Ratio 0.8 L (1.2-2.2) Urine Color (YELLOW) Urine Appearance (CLEAR) Urine pH (5.0-8.0) Ur Specific [place] (1.008-1.030) Urine Protein (NEGATIVE) mg/dL Urine Glucose (UA) (NEGATIVE) mg/dL Urine Ketones (NEGATIVE) mg/dL Urine Occult Blood (NEGATIVE) Urine Nitrite (NEGATIVE) Urine Bilirubin (NEGATIVE) Urine Urobilinogen (0.2-1.0) EU/dL Ur Leukocyte Esterase (NEGATIVE) Urine RBC (0-5) Urine WBC (0-5) Ur Epithelial Cells Amorphous Sediment Urine Bacteria Urine Mucus 12/02/20 Range/Units 10:38 WBC (4.5-11.0) K/uL RBC (3.30-5.50) M/uL Hgb (12.0-15.0) g/dL Hct (36.0-48.0) % MCV (80-98) fL MCH (27-31) pg MCHC (32-36) % Plt Count (150-400) K/uL PT (9.5-12.0) sec INR (0.80-1.20) Sodium (140-148) mmol/L Potassium (3.6-5.2) mmol/L Chloride (100-108) mmol/L Carbon Dioxide (21-32) mmol/L Anion Gap (5.0-14.0) mmol/L BUN (7-18) mg/dL Creatinine (0.6-1.0) mg/dL Est Cr Clr Drug Dosing mL/min Estimated GFR (MDRD) (>60) Glucose (74-106) mg/dL Calcium (8.5-10.1) mg/dL Total Bilirubin (0.2-1.0) mg/dL AST (15-37) U/L ALT (12-78) U/L Alkaline Phosphatase (46-116) U/L Total Protein (6.4-8.2) g/dL Albumin (3.4-5.0) g/dL Globulin (2.3-3.5) g/dL Albumin/Globulin Ratio (1.2-2.2) Urine Color Yellow (YELLOW) Urine Appearance Cloudy A (CLEAR) Urine pH 7.5 (5.0-8.0) Ur Specific [place] 1.020 (1.008-1.030) Urine Protein Negative (NEGATIVE) mg/dL Urine Glucose (UA) Negative (NEGATIVE) mg/dL Urine Ketones Negative (NEGATIVE) mg/dL Urine Occult Blood Small H (NEGATIVE) Urine Nitrite Negative (NEGATIVE) Urine Bilirubin Negative (NEGATIVE) Urine Urobilinogen 0.2 (0.2-1.0) EU/dL Ur Leukocyte Esterase Large (NEGATIVE) Urine RBC 0-5 (0-5) Urine WBC 75-100 H (0-5) Ur Epithelial Cells Not seen Amorphous Sediment Few Urine Bacteria Many Urine Mucus Not seen Meds: Medications Discontinued Medications Generic Name Dose Route Start Last Admin Trade Name Freq PRN Reason Stop Dose Admin Cefdinir 300 mg 12/02/20 11:28 Cefdinir 300 Mg Cap PO 12/02/20 11:29 ONETIME ONE - Re-Assessments/Exams Free Text/Narrative Re-Assessment/Exam: This is a 80-year-old female who presents with concerns of possible rectal bleeding. History is limited due to her underlying dementia. Her physical exam is reassuring, her vitals are normal and I cannot appreciate any evidence of rectal bleeding on exam as noted. She is otherwise noted to have suprapubic tenderness, concerned of some pain in this area, with a history of UTIs. Labs obtained, hemoglobin is actually up over point from recent visit. UA is indicative of urinary infection. Labs otherwise at baseline. Not sure what to make of this reported GI bleeding, there is no evidence currently in her exam and labs are otherwise reassuring. Her primary concern is this suprapubic discomfort, in the setting of her positive UA we can treat her for UTI with cefdinir. Plan is to discharge her back to her living facility where she can be closely monitored and return to the ED for recurrent symptoms. 12/02/20 12:12 Departure - Departure Time of Disposition: 11:30 Disposition: Home, Self-Care 01 Clinical Impression: UTI, Urinary tract infectious disease - Discharge Information *PRESCRIPTION DRUG MONITORING PROGRAM REVIEWED*: No *COPY OF PRESCRIPTION DRUG MONITORING REPORT IN PATIENT SADE: No Prescriptions: Cefdinir [Omnicef] 300 mg PO BID #10 cap Instructions: Urinary Tract Infection, Adult, [id number] Referrals: PCP,None [Primary Care Provider] - Forms: ED Department Discharge Additional Instructions: As discussed, your labs are consistent with a urinary tract infection which may be causing the pain you are experiencing. I do not see any bleeding from your bottom on exam. Please take the prescribed antibiotic. If your symptoms recur, or if you develop pain worsening pain, fevers, confusion, or other concerning symptoms we are always happy to reevaluate you in the emergency room. Sepsis Event Note (ED) - Evaluation Sepsis Screening Result: No Definite Risk - Focused Exam Vital Signs: Vital Signs Temp Pulse Resp BP Pulse Ox 12/02/20 08:46 36.6 C 64 16 151/65 H 99 12/02/20 08:30 36.6 C 64 16 151/65 H 99
[2020-12-02 12:28] VITALS: BP 160/78; PULSE 66
== END 2020-12-02 14:54 | disposition home or self-care (01) ==
LOC: JP.ED 08:25
DX: N39.0 Urinary tract infection, site not specified (principal); F03.90 Unspecified dementia, unspecified severity, without behavioral disturbance, psychotic disturbance, mood disturbance, and anxiety; I12.9 Hypertensive chronic kidney disease with stage 1 through stage 4 chronic kidney disease, or unspecified chronic kidney disease; N18.30 Chronic kidney disease, stage 3 unspecified; E11.9 Type 2 diabetes mellitus without complications; J96.01 Acute respiratory failure with hypoxia; Z88.5 Allergy status to narcotic agent; Z91.011 Allergy to milk products; Z79.4 Long term (current) use of insulin; Z79.82 Long term (current) use of aspirin; Z79.899 Other long term (current) drug therapy
CPT/HCPCS: 36415; 80053; 81001; 85027; 85610; 99284; A9270

== ENCOUNTER 2021-05-02 12:34 | Emergency (ER) | payer MEDICARE ==
[2021-05-02 12:56] VITALS: BP 171/78; PULSE 59
[2021-05-02 13:53] LABS: CORONAVIRUS COVID-19 NAA NEGATIVE (NEGATIVE)
[2021-05-02] MEDS ORDERED: cefTRIAXone 1 GM in Sodium Chloride 0.9% 50 ML IV ONE (17:48)
[2021-05-02] MEDS ORDERED: Sodium Chloride 0.9% 1,000 ML IV SCH (18:00)
== END 2021-05-02 19:10 | disposition home or self-care (01) ==
LOC: JP.ED 12:34
DX: S01.81XA Laceration without foreign body of other part of head, initial encounter (principal); E86.0 Dehydration; N39.0 Urinary tract infection, site not specified; I12.9 Hypertensive chronic kidney disease with stage 1 through stage 4 chronic kidney disease, or unspecified chronic kidney disease; E11.22 Type 2 diabetes mellitus with diabetic chronic kidney disease; N18.9 Chronic kidney disease, unspecified; E11.40 Type 2 diabetes mellitus with diabetic neuropathy, unspecified; Z88.5 Allergy status to narcotic agent; Z91.011 Allergy to milk products; Z79.4 Long term (current) use of insulin; Z79.82 Long term (current) use of aspirin; Z79.899 Other long term (current) drug therapy; Z20.822 Contact with and (suspected) exposure to COVID-19; W18.30XA Fall on same level, unspecified, initial encounter; Y92.009 Unspecified place in unspecified non-institutional (private) residence as the place of occurrence of the external cause
CPT/HCPCS: 0241U; 12011; 36415; 70450; 71045; 80053; 81001; 82272; 84484; 85025; 93005; 96365; 99285; J0696; J7030